=== PATIENT | male | born 1980 | race Caucasian/White ===

== ENCOUNTER 2017-10-19 13:22 | Emergency (ER) | payer SELFPAY ==
[~2017-10-19] VITALS: Ht 175.3 cm; Wt 120.5 kg
[2017-10-19] MEDS ORDERED: LISI-660 PO (13:36)
[2017-10-19] MEDS ORDERED: AMLO2.5T PO (13:36)
[2017-10-19] MEDS ORDERED: ESCI10TA PO (13:36)
[2017-10-19] MEDS ORDERED: QUET25TA PO (13:36)
[2017-10-19] MEDS ORDERED: LORazepam 1 MG TABLET PO ONE (14:45)
[2017-10-19 14:56] VITALS: BP 150/84
[2017-10-20] MEDS ORDERED: GABA-529 PO (09:35)
[2017-10-20] MEDS ORDERED: TRAZ-147 PO (09:35)
[2017-10-20] MEDS ORDERED: RISP1 PO (13:01)
== END 2017-10-19 14:57 | disposition home or self-care (01) ==
LOC: EMS 13:25
DX: Z76.0 Encounter for issue of repeat prescription (principal); F41.9 Anxiety disorder, unspecified; I10 Essential (primary) hypertension; F32.9 Major depressive disorder, single episode, unspecified; F17.210 Nicotine dependence, cigarettes, uncomplicated
CPT/HCPCS: 99283

== ENCOUNTER 2017-10-20 09:27 | Inpatient (IN) | payer SELFPAY ==
[~2017-10-20] VITALS: Ht 175.3 cm; Wt 112.5 kg
[~2017-10-20 09:27] MED LIST: AMLO2.5T PO; ESCI10TA PO; LISI-660 PO; QUET25TA PO
[2017-10-20] MEDS ORDERED: GABA-529 PO (09:35)
[2017-10-20] MEDS ORDERED: TRAZ-147 PO (09:35)
[2017-10-20 09:47] LABS: BASOPHILS % (AUTO) 0.7 % (0.0-2.0); EOSINOPHILS % (AUTO) 0.7 % (1.0-6.0); HEMATOCRIT 42.6 % (41-53); HEMOGLOBIN 14.5 g/dL (13.5-17.5); LYMPHOCYTES # (AUTO) 1.6 K/uL (1.0-4.8); LYMPHOCYTES % (AUTO) 13.5 % (22.0-44.0); MEAN CORPUSCULAR HEMOGLOBIN 28.7 pg (26.0-34.0); MEAN CORPUSCULAR HGB CONC 34.1 G/dL (31.0-37.0); MEAN CORPUSCULAR VOLUME 84 fL (80-100); MONOCYTES # (AUTO) 0.3 K/uL (0.1-1.0); MONOCYTES % (AUTO) 2.6 % (2.0-9.0); NEUTROPHILS # (AUTO) 9.9 K/uL (1.8-7.7); NEUTROPHILS % (AUTO) 82.5 % (40.0-70.0); PLATELET COUNT (AUTO) 353 K/uL (150-450); RED BLOOD CELL COUNT(AUTO) 5.07 MIL/uL (4.50-5.90)
[2017-10-20 09:56] LABS: ANION GAP 12 mmol/L (8-16); CALCIUM, TOTAL 9.2 mg/dL (8.8-10.5); CARBON DIOXIDE 24 mmol/L (22-29); CHLORIDE 104 mmol/L (98-107); GLOMERULAR FILTR. RATE CALC > 60 mL/min (>60); GLUCOSE,RANDOM 154 mg/dL (70-110); POTASSIUM 4.1 mmol/L (3.5-5.1); SODIUM SERUM 140 mmol/L (136-145); UREA NITROGEN, BLOOD 11 mg/dL (7-18)
[2017-10-20 10:01] LABS: ALANINE AMINOTRANSFERASE 36 U/L (12-78); ALBUMIN 3.9 g/dL (3.4-5.0); ALKALINE PHOSPHATASE 83 U/L (46-116); AMPHET/METH SCREEN,URINE NEGATIVE (NEGATIVE); ASPARTATE AMINOTRANSFERASE 16 U/L (15-37); BARBITURATE SCREEN, URINE NEGATIVE (NEGATIVE); BENZODIAZEPINES SCREEN,URINE NEGATIVE (NEGATIVE); BILIRUBIN,TOTAL 0.2 mg/dL (0.1-1.0); CANNABINOID SCREEN,URINE NEGATIVE (NEGATIVE); COCAINE SCREEN,URINE NEGATIVE (NEGATIVE); METHADONE SCREEN, URINE NEGATIVE (NEGATIVE); OPIATE SCREEN,URINE NEGATIVE (NEGATIVE); PHENCYCLIDINE SCREEN,URINE NEGATIVE (NEGATIVE); TOTAL PROTEIN, SERUM 7.2 g/dL (6.4-8.2)
[2017-10-20] MEDS ORDERED: LORazepam 2 MG TABLET PO ONE (10:30)
[2017-10-20] MEDS ORDERED: HALOPERIDOL 5 MG TABLET PO PRN ×2 (11:00→12:00)
[2017-10-20] MEDS ORDERED: LORazepam 2 MG TABLET PO PRN (11:00)
[2017-10-20] MEDS ORDERED: ZOLPIDEM TARTRATE 10 MG TABLET PO PRN ×2 (11:00→12:00)
[2017-10-20] MEDS ORDERED: AmLODIPine BESYLATE 5 MG TABLET PO ONE (11:15)
[2017-10-20] MEDS ORDERED: RISP1 PO (13:01)
[2017-10-20 13:15] VITALS: BP 120/81
[2017-10-20] MEDS: GABAPENTIN 100 MG CAPSULE PO SCH ×2 (13:18→16:41)
[2017-10-20] MEDS: LORazepam 2 MG TABLET PO PRN (13:45)
[2017-10-20] MEDS ORDERED: GABAPENTIN 100 MG CAPSULE PO SCH (16:00)
[2017-10-20 16:07] VITALS: BP 120/66
[2017-10-20] MEDS: LISINOPRIL 5 MG TABLET PO SCH (16:41)
[2017-10-20] MEDS: TraZODone HCL 100 MG TABLET PO SCH (20:18)
[2017-10-20] MEDS ORDERED: TraZODone HCL 100 MG TABLET PO SCH (21:00)
[2017-10-21 04:55] VITALS: BP 142/92
[2017-10-21] MEDS: LORazepam 2 MG TABLET PO PRN ×3 (04:55→14:13)
[2017-10-21 08:26] VITALS: BP 122/88
[2017-10-21] MEDS ORDERED: ESCITALOPRAM OXALATE 10 MG TABLET PO SCH (09:00)
[2017-10-21] MEDS: GABAPENTIN 100 MG CAPSULE PO SCH ×3 (09:28→16:16)
[2017-10-21] MEDS: LISINOPRIL 5 MG TABLET PO SCH ×2 (09:28→16:16)
[2017-10-21] MEDS: AmLODIPine BESYLATE 2.5 MG TABLET PO SCH (09:28)
[2017-10-21] MEDS: ESCITALOPRAM OXALATE 10 MG TABLET PO SCH (09:29)
[2017-10-21 16:00] VITALS: BP 125/83
[2017-10-21] MEDS: TraZODone HCL 100 MG TABLET PO SCH (20:04)
[2017-10-22] MEDS: LORazepam 2 MG TABLET PO PRN ×3 (05:00→16:37)
[2017-10-22 06:33] VITALS: BP 138/86
[2017-10-22] MEDS: ESCITALOPRAM OXALATE 10 MG TABLET PO SCH (08:18)
[2017-10-22] MEDS: LISINOPRIL 5 MG TABLET PO SCH ×2 (08:19→16:13)
[2017-10-22] MEDS: GABAPENTIN 100 MG CAPSULE PO SCH ×3 (08:19→16:13)
[2017-10-22] MEDS: AmLODIPine BESYLATE 2.5 MG TABLET PO SCH (08:19)
[2017-10-22 08:23] LABS: BASOPHILS % (AUTO) 0.7 % (0.0-2.0); EOSINOPHILS % (AUTO) 2.5 % (1.0-6.0); HEMATOCRIT 41.9 % (41-53); HEMOGLOBIN 14.1 g/dL (13.5-17.5); LYMPHOCYTES # (AUTO) 2.1 K/uL (1.0-4.8); LYMPHOCYTES % (AUTO) 24.1 % (22.0-44.0); MEAN CORPUSCULAR HEMOGLOBIN 28.4 pg (26.0-34.0); MEAN CORPUSCULAR HGB CONC 33.6 G/dL (31.0-37.0); MEAN CORPUSCULAR VOLUME 85 fL (80-100); MONOCYTES # (AUTO) 0.3 K/uL (0.1-1.0); MONOCYTES % (AUTO) 3.3 % (2.0-9.0); NEUTROPHILS % (AUTO) 69.4 % (40.0-70.0); PLATELET COUNT (AUTO) 309 K/uL (150-450); RED BLOOD CELL COUNT(AUTO) 4.96 MIL/uL (4.50-5.90); RED CELL DISTRIBUTION WIDTH 13.1 % (11.5-14.5)
[2017-10-22 10:00] VITALS: BP 136/86
[2017-10-22 16:11] VITALS: BP 121/98
[2017-10-22] MEDS: TraZODone HCL 100 MG TABLET PO SCH (20:12)
[2017-10-23 04:00] VITALS: BP 140/82
[2017-10-23] MEDS: LORazepam 2 MG TABLET PO PRN ×3 (04:27→15:48)
[2017-10-23 08:24] VITALS: BP 121/73
[2017-10-23] MEDS: GABAPENTIN 100 MG CAPSULE PO SCH ×3 (08:32→16:03)
[2017-10-23] MEDS: LISINOPRIL 5 MG TABLET PO SCH ×2 (08:32→16:03)
[2017-10-23] MEDS: ESCITALOPRAM OXALATE 10 MG TABLET PO SCH (08:32)
[2017-10-23] MEDS: AmLODIPine BESYLATE 2.5 MG TABLET PO SCH (08:32)
[2017-10-23] MEDS ORDERED: GABA-529 PO (14:30)
[2017-10-23] MEDS ORDERED: AMLO2.5T PO (14:30)
[2017-10-23] MEDS ORDERED: LISI-660 PO (14:30)
[2017-10-23] MEDS ORDERED: ESCI10TA PO (14:30)
[2017-10-23 16:26] VITALS: BP 120/79
[2017-10-23] MEDS: TraZODone HCL 100 MG TABLET PO SCH (20:27)
[2017-10-24 03:36] VITALS: BP 138/86
[2017-10-24] MEDS: LORazepam 2 MG TABLET PO PRN ×3 (03:37→16:04)
[2017-10-24] MEDS: ESCITALOPRAM OXALATE 10 MG TABLET PO SCH (08:04)
[2017-10-24] MEDS: AmLODIPine BESYLATE 2.5 MG TABLET PO SCH (08:04)
[2017-10-24] MEDS: GABAPENTIN 100 MG CAPSULE PO SCH ×3 (08:04→16:04)
[2017-10-24] MEDS: LISINOPRIL 5 MG TABLET PO SCH ×2 (08:05→16:04)
[2017-10-24 08:17] VITALS: BP 152/68
[2017-10-24 09:00] VITALS: BP 138/79
[2017-10-24 16:09] VITALS: BP 158/99
[2017-10-24 18:08] VITALS: BP 141/89
[2017-10-24] MEDS: TraZODone HCL 100 MG TABLET PO SCH (20:17)
[2017-10-25 00:55] VITALS: BP 119/87
[2017-10-25] MEDS: LORazepam 2 MG TABLET PO PRN ×3 (05:41→16:52)
[2017-10-25] MEDS: ESCITALOPRAM OXALATE 10 MG TABLET PO SCH (08:03)
[2017-10-25] MEDS: AmLODIPine BESYLATE 2.5 MG TABLET PO SCH (08:03)
[2017-10-25] MEDS: LISINOPRIL 5 MG TABLET PO SCH ×2 (08:04→16:54)
[2017-10-25] MEDS: GABAPENTIN 100 MG CAPSULE PO SCH ×3 (08:04→16:52)
[2017-10-25 10:12] VITALS: BP 139/90
[2017-10-25 16:06] VITALS: BP 120/78
[2017-10-25] MEDS: TraZODone HCL 100 MG TABLET PO SCH (20:13)
[2017-10-26] MEDS: LORazepam 2 MG TABLET PO PRN ×3 (04:43→16:05)
[2017-10-26 06:26] VITALS: BP 134/82
[2017-10-26 08:10] VITALS: BP 170/101
[2017-10-26] MEDS: GABAPENTIN 100 MG CAPSULE PO SCH ×3 (08:32→16:05)
[2017-10-26] MEDS: AmLODIPine BESYLATE 2.5 MG TABLET PO SCH (08:32)
[2017-10-26] MEDS: LISINOPRIL 5 MG TABLET PO SCH (08:32)
[2017-10-26] MEDS: ESCITALOPRAM OXALATE 10 MG TABLET PO SCH (08:32)
[2017-10-26 09:00] VITALS: BP 145/111
[2017-10-26 10:15] VITALS: BP 121/76
[2017-10-26] MEDS: AmLODIPine BESYLATE 10 MG TABLET PO SCH (10:16)
[2017-10-26] MEDS: LISINOPRIL 10 MG TABLET PO SCH (10:16)
[2017-10-26 16:07] VITALS: BP 120/85
[2017-10-26] MEDS: TraZODone HCL 100 MG TABLET PO SCH (20:03)
[2017-10-27 04:30] VITALS: BP 122/85
[2017-10-27] MEDS: LORazepam 2 MG TABLET PO PRN ×3 (04:41→16:13)
[2017-10-27 08:19] VITALS: BP 118/58
[2017-10-27] MEDS: ESCITALOPRAM OXALATE 10 MG TABLET PO SCH (08:36)
[2017-10-27] MEDS: GABAPENTIN 100 MG CAPSULE PO SCH ×3 (08:36→16:04)
[2017-10-27] MEDS: LISINOPRIL 10 MG TABLET PO SCH (09:00)
[2017-10-27] MEDS: AmLODIPine BESYLATE 10 MG TABLET PO SCH (09:00)
[2017-10-27 16:01] VITALS: BP 121/86
[2017-10-27] MEDS: TraZODone HCL 100 MG TABLET PO SCH (20:03)
[2017-10-28 02:20] VITALS: BP 125/86
[2017-10-28 04:37] VITALS: BP 141/82
[2017-10-28] MEDS: LORazepam 2 MG TABLET PO PRN ×2 (04:49→11:44)
[2017-10-28 08:20] VITALS: BP 120/82
[2017-10-28] MEDS: GABAPENTIN 100 MG CAPSULE PO SCH ×3 (08:49→16:36)
[2017-10-28] MEDS: AmLODIPine BESYLATE 10 MG TABLET PO SCH (08:49)
[2017-10-28] MEDS: LISINOPRIL 10 MG TABLET PO SCH (08:49)
[2017-10-28] MEDS: ESCITALOPRAM OXALATE 10 MG TABLET PO SCH (08:49)
[2017-10-28] MEDS ORDERED: AMLO-512 PO (16:03)
[2017-10-28] MEDS ORDERED: LISI-661 PO (16:03)
[2017-10-28 16:46] VITALS: BP 122/92
== END 2017-10-28 17:00 | disposition home or self-care (01) | DRG 885 ==
LOC: EMS 09:29 → B2S 11:42
DX: F31.4 Bipolar disorder, current episode depressed, severe, without psychotic features (principal); R45.851 Suicidal ideations; F15.10 Other stimulant abuse, uncomplicated; F17.210 Nicotine dependence, cigarettes, uncomplicated; F41.9 Anxiety disorder, unspecified; I10 Essential (primary) hypertension; Z79.899 Other long term (current) drug therapy; Z91.5 Personal history of self-harm
CPT/HCPCS: 83036; 99285; G0480

== ENCOUNTER 2018-09-12 06:54 | Inpatient (IN) | payer MEDICAID ==
[~2018-09-12] VITALS: Ht 175.3 cm; Wt 94.5 kg
[~2018-09-12 06:54] MED LIST changes: +AMLO-512 PO; -AMLO2.5T PO; +GABA-529 PO; -LISI-660 PO; +LISI-661 PO; -QUET25TA PO; +TRAZ-220 PO
[2018-09-12 08:56] VITALS: BP 130/82
[2018-09-12] MEDS ORDERED: ZOLPIDEM TARTRATE 10 MG TABLET PO PRN (09:00)
[2018-09-12] MEDS ORDERED: ADDE10 PO (09:29)
[2018-09-12 10:00] VITALS: BP 129/89
[2018-09-12] MEDS ORDERED: LOPERAMIDE HCL 2 MG CAPSULE PO PRN (10:45)
[2018-09-12] MEDS ORDERED: PNEUMOCOCCAL VACCINE POLYVALENT 0.5 ML VIAL [PPSV23] IM ONE (10:45)
[2018-09-12] MEDS ORDERED: MAG HYDROX/AL HYDROX/SIMETH ES 30 ML SUSPENSION UDCUP PO PRN (10:45)
[2018-09-12] MEDS ORDERED: ONDANSETRON HCL 4 MG TABLET PO PRN (10:45)
[2018-09-12] MEDS ORDERED: MAGNESIUM HYDROXIDE SUSPENSION 30 ML UDCUP PO PRN (10:45)
[2018-09-12] MEDS ORDERED: CloNIDine HCL 0.1 MG TABLET PO PRN (10:45)
[2018-09-12] MEDS ORDERED: GuaiFENesin/D-METHORPHAN [SUGAR-FREE] 200-20MG/10 ML SYRUP UDCUP PO PRN (10:45)
[2018-09-12] MEDS ORDERED: PETROLATUM,WHITE 71 GM JELLY TP PRN (10:45)
[2018-09-12] MEDS ORDERED: DOCUSATE SODIUM 100 MG CAPSULE PO PRN (10:45)
[2018-09-12] MEDS ORDERED: ALBUTEROL SULFATE HFA 90 MCG/PUFF 8 GM INHALER IH PRN (10:45)
[2018-09-12] MEDS ORDERED: ACETAMINOPHEN 325 MG TABLET PO PRN (10:45)
[2018-09-12] MEDS ORDERED: IBUPROFEN 400 MG TABLET PO PRN (10:45)
[2018-09-12] MEDS: NICOTINE 14 MG/24 HOUR PATCH TD SCH (11:56)
[2018-09-12] MEDS ORDERED: LISINOPRIL 20 MG TABLET PO ONE (12:30)
[2018-09-12 16:31] VITALS: BP 136/96
[2018-09-12] MEDS: GABAPENTIN 100 MG CAPSULE PO SCH (16:32)
[2018-09-12] MEDS: LORazepam 2 MG TABLET PO PRN (16:33)
[2018-09-13 06:07] VITALS: BP 132/87
[2018-09-13 08:21] LABS: BASOPHILS % (AUTO) 0.6 % (0.0-2.0); EOSINOPHILS % (AUTO) 3.9 % (1.0-6.0); HEMATOCRIT 41.6 % (41-53); HEMOGLOBIN 14.2 g/dL (13.5-17.5); LYMPHOCYTES # (AUTO) 2.6 K/uL (1.0-4.8); LYMPHOCYTES % (AUTO) 28.1 % (22.0-44.0); MEAN CORPUSCULAR HEMOGLOBIN 30.3 pg (26.0-34.0); MEAN CORPUSCULAR HGB CONC 34.2 G/dL (31.0-37.0); MEAN CORPUSCULAR VOLUME 89 fL (80-100); MONOCYTES # (AUTO) 0.5 K/uL (0.1-1.0); NEUTROPHILS # (AUTO) 5.8 K/uL (1.8-7.7); NEUTROPHILS % (AUTO) 62.4 % (40.0-70.0); PLATELET COUNT (AUTO) 315 K/uL (150-450); RED CELL DISTRIBUTION WIDTH 13.2 % (11.5-14.5)
[2018-09-13 08:33] LABS: HEMOGLOBIN A1C 5.5 % (4.5-6.2)
[2018-09-13 08:36] VITALS: BP 136/70
[2018-09-13] MEDS: GABAPENTIN 100 MG CAPSULE PO SCH ×3 (08:36→16:34)
[2018-09-13] MEDS: ESCITALOPRAM OXALATE 10 MG TABLET PO SCH (08:36)
[2018-09-13] MEDS: LISINOPRIL 20 MG TABLET PO SCH (08:37)
[2018-09-13] MEDS: NICOTINE 14 MG/24 HOUR PATCH TD SCH (08:37)
[2018-09-13 08:57] LABS: ALANINE AMINOTRANSFERASE 27 U/L (12-78); ALBUMIN 3.4 g/dL (3.4-5.0); ALKALINE PHOSPHATASE 73 U/L (46-116); ANION GAP 5 mmol/L (8-16); ASPARTATE AMINOTRANSFERASE 14 U/L (15-37); BILIRUBIN,TOTAL 0.3 mg/dL (0.1-1.0); CALCIUM, TOTAL 8.7 mg/dL (8.8-10.5); CARBON DIOXIDE 32 mmol/L (22-29); CHLORIDE 103 mmol/L (98-107); CHOLESTEROL 137 mg/dL (131-200); CREATININE 0.68 mg/dL (0.60-1.30); GLOMERULAR FILTR. RATE CALC > 60 mL/min (>60); GLUCOSE,RANDOM 83 mg/dL (70-110); HDL CHOLESTEROL 45 mg/dL (40-60); LDL CHOL (CALC.) 69 mg/dL (0-130); SODIUM SERUM 140 mmol/L (136-145); THYROID STIMULATING HORMONE 0.54 uIU/mL (0.36-3.74); TOTAL PROTEIN, SERUM 6.8 g/dL (6.4-8.2); TRIGLYCERIDES 115 mg/dL (15-150); UREA NITROGEN, BLOOD 16 mg/dL (7-18)
[2018-09-13] MEDS: LORazepam 2 MG TABLET PO PRN ×3 (10:22→22:16)
[2018-09-13 16:51] VITALS: BP 138/85
[2018-09-14 07:37] VITALS: BP 127/84
[2018-09-14 08:59] VITALS: BP 140/89
[2018-09-14] MEDS: NICOTINE 14 MG/24 HOUR PATCH TD SCH (09:00)
[2018-09-14] MEDS: LISINOPRIL 20 MG TABLET PO SCH (09:21)
[2018-09-14] MEDS: ESCITALOPRAM OXALATE 10 MG TABLET PO SCH (09:21)
[2018-09-14] MEDS: GABAPENTIN 100 MG CAPSULE PO SCH ×3 (09:21→17:09)
[2018-09-14] MEDS: LORazepam 2 MG TABLET PO PRN ×2 (09:58→17:10)
[2018-09-14] MEDS: HALOPERIDOL 5 MG TABLET PO PRN (09:58)
[2018-09-14 16:11] VITALS: BP 133/79
[2018-09-14] MEDS: MUPIROCIN CALCIUM 2% 22 GM OINTMENT TP SCH (17:09)
[2018-09-15 06:52] VITALS: BP 126/71
[2018-09-15] MEDS: LORazepam 2 MG TABLET PO PRN (07:22)
[2018-09-15 08:47] VITALS: BP 135/89
[2018-09-15] MEDS: NICOTINE 14 MG/24 HOUR PATCH TD SCH (09:00)
[2018-09-15] MEDS: ESCITALOPRAM OXALATE 10 MG TABLET PO SCH (09:14)
[2018-09-15] MEDS: GABAPENTIN 100 MG CAPSULE PO SCH ×3 (09:14→16:30)
[2018-09-15] MEDS: MUPIROCIN CALCIUM 2% 22 GM OINTMENT TP SCH ×2 (09:14→16:42)
[2018-09-15] MEDS: LISINOPRIL 20 MG TABLET PO SCH (09:14)
[2018-09-15] MEDS: HALOPERIDOL 5 MG TABLET PO PRN (09:53)
[2018-09-15] MEDS ORDERED: LISI-662 PO (13:30)
[2018-09-15] MEDS ORDERED: MUPI15CR TP (13:33)
== END 2018-09-15 16:40 | disposition home or self-care (01) | DRG 753 ==
LOC: B2S 09:04 → EDSTATUS 09:34
DX: F31.4 Bipolar disorder, current episode depressed, severe, without psychotic features (principal); E83.51 Hypocalcemia; F41.9 Anxiety disorder, unspecified; I10 Essential (primary) hypertension; F15.90 Other stimulant use, unspecified, uncomplicated; F12.90 Cannabis use, unspecified, uncomplicated; F19.10 Other psychoactive substance abuse, uncomplicated; Z71.51 Drug abuse counseling and surveillance of drug abuser; Z59.0 Homelessness; F29 Unspecified psychosis not due to a substance or known physiological condition; Z28.21 Immunization not carried out because of patient refusal
CPT/HCPCS: 83036; 84443; 87081

== ENCOUNTER 2018-10-21 19:53 | Inpatient (IN) | payer MEDICAID ==
[~2018-10-21] VITALS: Ht 175.3 cm; Wt 91.6 kg
[~2018-10-21 19:53] MED LIST changes: -AMLO-512 PO; -LISI-661 PO; +LISI-662 PO; +MUPI15CR TP; -TRAZ-220 PO
[2018-10-22] MEDS ORDERED: ZOLPIDEM TARTRATE 10 MG TABLET PO PRN (00:30)
[2018-10-22] MEDS ORDERED: HALOPERIDOL 5 MG TABLET PO PRN (00:30)
[2018-10-22 01:14] VITALS: BP 140/78
[2018-10-22 10:10] VITALS: BP 140/74
[2018-10-22] MEDS: ESCITALOPRAM OXALATE 10 MG TABLET PO SCH (11:06)
[2018-10-22] MEDS: GABAPENTIN 100 MG CAPSULE PO SCH ×2 (13:21→16:59)
[2018-10-22 16:45] VITALS: BP 142/86
[2018-10-23 07:17] VITALS: BP 143/87
[2018-10-23] MEDS: GABAPENTIN 100 MG CAPSULE PO SCH ×3 (08:36→17:29)
[2018-10-23] MEDS: ESCITALOPRAM OXALATE 10 MG TABLET PO SCH (08:36)
[2018-10-23 08:49] VITALS: BP 142/85
[2018-10-23 08:54] LABS: BASOPHILS % (AUTO) 0.3 % (0.0-2.0); EOSINOPHILS % (AUTO) 3.7 % (1.0-6.0); HEMATOCRIT 42.3 % (41-53); HEMOGLOBIN 13.8 g/dL (13.5-17.5); LYMPHOCYTES # (AUTO) 1.9 K/uL (1.0-4.8); LYMPHOCYTES % (AUTO) 20.3 % (22.0-44.0); MEAN CORPUSCULAR HEMOGLOBIN 28.5 pg (26.0-34.0); MEAN CORPUSCULAR HGB CONC 32.7 G/dL (31.0-37.0); MEAN CORPUSCULAR VOLUME 87 fL (80-100); MONOCYTES # (AUTO) 0.4 K/uL (0.1-1.0); MONOCYTES % (AUTO) 4.4 % (2.0-9.0); NEUTROPHILS # (AUTO) 6.6 K/uL (1.8-7.7); NEUTROPHILS % (AUTO) 71.3 % (40.0-70.0); PLATELET COUNT (AUTO) 337 K/uL (150-450); RED BLOOD CELL COUNT(AUTO) 4.85 MIL/uL (4.50-5.90); RED CELL DISTRIBUTION WIDTH 13.3 % (11.5-14.5)
[2018-10-23 09:09] LABS: HEMOGLOBIN A1C 5.3 % (4.5-6.2)
[2018-10-23 09:48] LABS: ALANINE AMINOTRANSFERASE 28 U/L (12-78); ALBUMIN 3.3 g/dL (3.4-5.0); ALKALINE PHOSPHATASE 66 U/L (46-116); ANION GAP 6 mmol/L (8-16); ASPARTATE AMINOTRANSFERASE 15 U/L (15-37); BILIRUBIN,TOTAL 0.5 mg/dL (0.1-1.0); CALCIUM, TOTAL 8.9 mg/dL (8.8-10.5); CARBON DIOXIDE 29 mmol/L (22-29); CHLORIDE 101 mmol/L (98-107); CHOL/HDL RATIO 3.1 (4.2-7.3); CHOLESTEROL 131 mg/dL (131-200); CREATININE 0.71 mg/dL (0.60-1.30); FREE T4 (FREE THYROXINE) 0.99 ng/dL (0.76-1.46); GLOMERULAR FILTR. RATE CALC > 60 mL/min (>60); GLUCOSE,RANDOM 90 mg/dL (70-110); HDL CHOLESTEROL 42 mg/dL (40-60); LDL CHOL (CALC.) 65 mg/dL (0-130); POTASSIUM 4.3 mmol/L (3.5-5.1); SODIUM SERUM 136 mmol/L (136-145); THYROID STIMULATING HORMONE 0.12 uIU/mL (0.36-3.74); TOTAL PROTEIN, SERUM 6.5 g/dL (6.4-8.2); TRIGLYCERIDES 122 mg/dL (15-150); UREA NITROGEN, BLOOD 14 mg/dL (7-18)
[2018-10-23 16:12] VITALS: BP 144/89
[2018-10-24 01:53] VITALS: BP 140/85
[2018-10-24] MEDS: ESCITALOPRAM OXALATE 10 MG TABLET PO SCH (09:00)
[2018-10-24] MEDS: GABAPENTIN 100 MG CAPSULE PO SCH ×3 (09:00→17:03)
[2018-10-24 09:21] VITALS: BP 143/80
[2018-10-24] MEDS: LORazepam 2 MG TABLET PO PRN ×2 (12:22→19:03)
[2018-10-24] MEDS: LISINOPRIL 20 MG TABLET PO SCH (17:03)
[2018-10-25 00:20] VITALS: BP 131/80
[2018-10-25] MEDS: ESCITALOPRAM OXALATE 10 MG TABLET PO SCH (08:44)
[2018-10-25] MEDS: LORazepam 2 MG TABLET PO PRN ×2 (08:44→13:54)
[2018-10-25] MEDS: GABAPENTIN 100 MG CAPSULE PO SCH ×3 (08:44→16:58)
[2018-10-25] MEDS: LISINOPRIL 20 MG TABLET PO SCH (08:44)
[2018-10-25 10:10] VITALS: BP 135/95
[2018-10-25 16:16] VITALS: BP 138/76
[2018-10-26 00:02] VITALS: BP 126/79
[2018-10-26] MEDS: LORazepam 2 MG TABLET PO PRN ×3 (00:10→14:26)
[2018-10-26] MEDS: ESCITALOPRAM OXALATE 10 MG TABLET PO SCH (09:07)
[2018-10-26] MEDS: GABAPENTIN 100 MG CAPSULE PO SCH ×3 (09:07→17:12)
[2018-10-26] MEDS: LISINOPRIL 20 MG TABLET PO SCH (09:07)
[2018-10-26 09:52] VITALS: BP 122/69
[2018-10-26 17:35] VITALS: BP 145/92
[2018-10-27] MEDS: LORazepam 2 MG TABLET PO PRN ×3 (00:12→15:03)
[2018-10-27 01:42] VITALS: BP 136/100
[2018-10-27 08:05] VITALS: BP 125/96
[2018-10-27] MEDS: ESCITALOPRAM OXALATE 10 MG TABLET PO SCH (08:36)
[2018-10-27] MEDS: LISINOPRIL 20 MG TABLET PO SCH (08:36)
[2018-10-27] MEDS: GABAPENTIN 100 MG CAPSULE PO SCH ×3 (08:36→16:25)
[2018-10-27 16:22] VITALS: BP 145/83
[2018-10-28] MEDS: LORazepam 2 MG TABLET PO PRN ×3 (00:02→12:24)
[2018-10-28 00:53] VITALS: BP 110/85
[2018-10-28] MEDS: ESCITALOPRAM OXALATE 10 MG TABLET PO SCH (08:12)
[2018-10-28] MEDS: GABAPENTIN 100 MG CAPSULE PO SCH ×2 (08:12→13:18)
[2018-10-28] MEDS: LISINOPRIL 20 MG TABLET PO SCH (08:13)
[2018-10-28] MEDS ORDERED: MULTIVITAMINS WITH MINERALS, THERAPEUTIC TABLET PO SCH (12:45)
[2018-10-28] MEDS ORDERED: LOPERAMIDE HCL 2 MG CAPSULE PO PRN (12:45)
[2018-10-28] MEDS ORDERED: LORazepam 2 MG TABLET PO PRN (12:45)
[2018-10-28] MEDS ORDERED: GuaiFENesin/D-METHORPHAN [SUGAR-FREE] 200-20MG/10 ML SYRUP UDCUP PO PRN (12:45)
[2018-10-28] MEDS ORDERED: CYANOCOBALAMIN 1,000 MCG/ML VIAL IM ONE (12:45)
[2018-10-28] MEDS ORDERED: HydrOXYzine PAMOATE 50 MG CAPSULE PO PRN (12:45)
[2018-10-28] MEDS ORDERED: FOLIC ACID 1 MG TABLET PO SCH (12:45)
[2018-10-28 14:57] VITALS: BP 120/80
[2018-10-28] MEDS ORDERED: THIAMINE HCL 100 MG TABLET PO SCH (17:00)
[2018-10-29] MEDS ORDERED: LORazepam 2 MG TABLET PO PRN (07:00)
[2018-10-29] MEDS ORDERED: LORazepam 2 MG TABLET PO SCH (09:00)
[2018-10-31] MEDS ORDERED: LORazepam 1 MG TABLET PO PRN (07:00)
[2018-10-31] MEDS ORDERED: LORazepam 1 MG TABLET PO SCH (09:00)
[2018-11-01] MEDS ORDERED: LORazepam 1 MG TABLET PO PRN (07:00)
== END 2018-10-28 15:30 | disposition home or self-care (01) | DRG 751 ==
LOC: B3A 10-22 00:30 → B2S 10-22 06:12
PROVIDERS: ADMIT Psychiatry & Neurology Child & Adolescent Psychiatry; ATTEND Psychiatry & Neurology Child & Adolescent Psychiatry
DX: F29 Unspecified psychosis not due to a substance or known physiological condition (principal); F17.200 Nicotine dependence, unspecified, uncomplicated; F41.9 Anxiety disorder, unspecified; R45.87 Impulsiveness
CPT/HCPCS: 83036; 84439; 84443

== ENCOUNTER 2018-11-12 20:22 | Inpatient (IN) | payer MEDICAID ==
[~2018-11-12] VITALS: Ht 170.2 cm; Wt 95.0 kg
[~2018-11-12 20:22] MED LIST changes: -MUPI15CR TP
[2018-11-12] MEDS ORDERED: HALOPERIDOL 5 MG TABLET PO PRN (21:00)
[2018-11-12] MEDS ORDERED: ZOLPIDEM TARTRATE 10 MG TABLET PO PRN (21:00)
[2018-11-12 21:42] VITALS: BP 145/89
[2018-11-12] MEDS ORDERED: MAGNESIUM HYDROXIDE SUSPENSION 30 ML UDCUP PO PRN (22:00)
[2018-11-12] MEDS ORDERED: LOPERAMIDE HCL 2 MG CAPSULE PO PRN (22:00)
[2018-11-12] MEDS ORDERED: PETROLATUM,WHITE 28 GM JELLY TP PRN (22:00)
[2018-11-12] MEDS ORDERED: ACETAMINOPHEN 325 MG TABLET PO PRN (22:00)
[2018-11-12] MEDS ORDERED: ONDANSETRON HCL 4 MG TABLET PO PRN (22:00)
[2018-11-12] MEDS ORDERED: NICOTINE 14 MG/24 HOUR PATCH TD PRN (22:00)
[2018-11-12] MEDS ORDERED: GuaiFENesin/D-METHORPHAN [SUGAR-FREE] 200-20MG/10 ML SYRUP UDCUP PO PRN (22:00)
[2018-11-12] MEDS ORDERED: IBUPROFEN 400 MG TABLET PO PRN (22:00)
[2018-11-12] MEDS ORDERED: ALBUTEROL SULFATE HFA 90 MCG/PUFF 8 GM INHALER IH PRN (22:00)
[2018-11-12] MEDS ORDERED: DOCUSATE SODIUM 100 MG CAPSULE PO PRN (22:00)
[2018-11-12] MEDS ORDERED: CloNIDine HCL 0.1 MG TABLET PO PRN (22:00)
[2018-11-12] MEDS ORDERED: MAG HYDROX/AL HYDROX/SIMETH ES 30 ML SUSPENSION UDCUP PO PRN (22:00)
[2018-11-13 04:38] VITALS: BP 111/71
[2018-11-13] MEDS: LORazepam 2 MG TABLET PO PRN ×2 (07:01→14:21)
[2018-11-13 08:14] LABS: BASOPHILS % (AUTO) 0.5 % (0.0-2.0); EOSINOPHILS % (AUTO) 4.2 % (1.0-6.0); HEMATOCRIT 40.7 % (41-53); HEMOGLOBIN 13.5 g/dL (13.5-17.5); LYMPHOCYTES # (AUTO) 1.9 K/uL (1.0-4.8); LYMPHOCYTES % (AUTO) 22.6 % (22.0-44.0); MEAN CORPUSCULAR HEMOGLOBIN 28.7 pg (26.0-34.0); MEAN CORPUSCULAR HGB CONC 33.2 G/dL (31.0-37.0); MEAN CORPUSCULAR VOLUME 87 fL (80-100); MONOCYTES # (AUTO) 0.5 K/uL (0.1-1.0); MONOCYTES % (AUTO) 5.7 % (2.0-9.0); NEUTROPHILS # (AUTO) 5.7 K/uL (1.8-7.7); PLATELET COUNT (AUTO) 256 K/uL (150-450); RED CELL DISTRIBUTION WIDTH 13.1 % (11.5-14.5)
[2018-11-13 08:23] LABS: HEMOGLOBIN A1C 5.9 % (4.5-6.2)
[2018-11-13 08:37] LABS: ALANINE AMINOTRANSFERASE 25 U/L (12-78); ALBUMIN 3.5 g/dL (3.4-5.0); ALKALINE PHOSPHATASE 68 U/L (46-116); ANION GAP 7 mmol/L (8-16); ASPARTATE AMINOTRANSFERASE 17 U/L (15-37); BILIRUBIN,TOTAL 0.5 mg/dL (0.1-1.0); CALCIUM, TOTAL 8.9 mg/dL (8.8-10.5); CARBON DIOXIDE 27 mmol/L (22-29); CHLORIDE 104 mmol/L (98-107); CHOL/HDL RATIO 3.6 (4.2-7.3); CHOLESTEROL 126 mg/dL (131-200); CREATININE 0.64 mg/dL (0.60-1.30); FREE T4 (FREE THYROXINE) 1.07 ng/dL (0.76-1.46); GLOMERULAR FILTR. RATE CALC > 60 mL/min (>60); GLUCOSE,RANDOM 96 mg/dL (70-110); HDL CHOLESTEROL 35 mg/dL (40-60); LDL CHOL (CALC.) 65 mg/dL (0-130); POTASSIUM 4.4 mmol/L (3.5-5.1); SODIUM SERUM 138 mmol/L (136-145); THYROID STIMULATING HORMONE 0.19 uIU/mL (0.36-3.74); TOTAL PROTEIN, SERUM 6.4 g/dL (6.4-8.2); TRIGLYCERIDES 129 mg/dL (15-150); UREA NITROGEN, BLOOD 13 mg/dL (7-18)
[2018-11-13] MEDS ORDERED: LISINOPRIL 20 MG TABLET PO SCH (09:00)
[2018-11-13 09:01] VITALS: BP 145/90
[2018-11-13] MEDS: AmLODIPine BESYLATE 5 MG TABLET PO SCH (09:10)
[2018-11-13] MEDS: GABAPENTIN 300 MG CAPSULE PO SCH ×2 (12:49→16:14)
[2018-11-13] MEDS: ESCITALOPRAM OXALATE 10 MG TABLET PO SCH (12:49)
[2018-11-13] MEDS ORDERED: GABAPENTIN 300 MG CAPSULE PO SCH (13:00)
[2018-11-13 16:22] VITALS: BP 139/84
[2018-11-14 00:26] VITALS: BP 126/86
[2018-11-14] MEDS: LORazepam 2 MG TABLET PO PRN ×5 (00:29→21:29)
[2018-11-14 08:28] VITALS: BP 132/61
[2018-11-14] MEDS ORDERED: ESCITALOPRAM OXALATE 10 MG TABLET PO SCH (09:00)
[2018-11-14] MEDS: ESCITALOPRAM OXALATE 10 MG TABLET PO SCH (09:50)
[2018-11-14] MEDS: GABAPENTIN 300 MG CAPSULE PO SCH ×3 (09:50→16:22)
[2018-11-14] MEDS: AmLODIPine BESYLATE 5 MG TABLET PO SCH (09:50)
[2018-11-14] MEDS: LISINOPRIL 20 MG TABLET PO SCH (09:51)
[2018-11-14 16:46] VITALS: BP 119/81
[2018-11-15 00:14] VITALS: BP 122/82
[2018-11-15] MEDS: LORazepam 2 MG TABLET PO PRN ×4 (02:18→21:12)
[2018-11-15 08:50] VITALS: BP 127/84
[2018-11-15] MEDS: AmLODIPine BESYLATE 5 MG TABLET PO SCH (09:22)
[2018-11-15] MEDS: ESCITALOPRAM OXALATE 10 MG TABLET PO SCH (09:22)
[2018-11-15] MEDS: GABAPENTIN 300 MG CAPSULE PO SCH ×3 (09:22→16:24)
[2018-11-15] MEDS: LISINOPRIL 20 MG TABLET PO SCH (09:22)
[2018-11-15 16:48] VITALS: BP 140/95
[2018-11-16 00:24] VITALS: BP 112/72
[2018-11-16] MEDS: LORazepam 2 MG TABLET PO PRN ×3 (02:19→11:16)
[2018-11-16 08:27] VITALS: BP 109/76
[2018-11-16] MEDS: GABAPENTIN 300 MG CAPSULE PO SCH ×3 (08:32→16:01)
[2018-11-16] MEDS: AmLODIPine BESYLATE 5 MG TABLET PO SCH (08:32)
[2018-11-16] MEDS: LISINOPRIL 20 MG TABLET PO SCH (08:32)
[2018-11-16] MEDS: ESCITALOPRAM OXALATE 10 MG TABLET PO SCH (08:32)
[2018-11-16] MEDS ORDERED: AMLO-511 PO (16:29)
[2018-11-16] MEDS ORDERED: GABA-531 PO (16:29)
[2018-11-16 16:43] VITALS: BP 118/72
== END 2018-11-16 17:40 | disposition home or self-care (01) | DRG 753 ==
LOC: B2S 21:01
PROVIDERS: ADMIT Psychiatry & Neurology Child & Adolescent Psychiatry; ATTEND Psychiatry & Neurology Child & Adolescent Psychiatry
DX: F31.4 Bipolar disorder, current episode depressed, severe, without psychotic features (principal); R45.851 Suicidal ideations; D64.9 Anemia, unspecified; F19.20 Other psychoactive substance dependence, uncomplicated; F41.9 Anxiety disorder, unspecified; I10 Essential (primary) hypertension; F10.10 Alcohol abuse, uncomplicated; Y90.9 Presence of alcohol in blood, level not specified; Z71.51 Drug abuse counseling and surveillance of drug abuser; Z71.41 Alcohol abuse counseling and surveillance of alcoholic
CPT/HCPCS: 83036; 84439; 84443

== ENCOUNTER 2018-11-26 20:34 | Inpatient (IN) | payer MEDICAID ==
[~2018-11-26] VITALS: Ht 175.3 cm; Wt 91.4 kg
[~2018-11-26 20:34] MED LIST changes: +AMLO-511 PO; -GABA-529 PO; +GABA-531 PO
[2018-11-26] MEDS ORDERED: ZOLPIDEM TARTRATE 10 MG TABLET PO PRN (22:15)
[2018-11-27] VITALS (8 sets, daily range): BP systolic 107–148; BP diastolic 77–89
[2018-11-27] MEDS ORDERED: MAGNESIUM HYDROXIDE SUSPENSION 30 ML UDCUP PO PRN (05:30)
[2018-11-27] MEDS ORDERED: DOCUSATE SODIUM 100 MG CAPSULE PO PRN (05:30)
[2018-11-27] MEDS ORDERED: IBUPROFEN 400 MG TABLET PO PRN (05:30)
[2018-11-27] MEDS ORDERED: ONDANSETRON HCL 4 MG TABLET PO PRN (05:30)
[2018-11-27] MEDS ORDERED: CloNIDine HCL 0.1 MG TABLET PO PRN ×2 (05:30→09:45)
[2018-11-27] MEDS ORDERED: ALBUTEROL SULFATE HFA 90 MCG/PUFF 8 GM INHALER IH PRN (05:30)
[2018-11-27] MEDS ORDERED: MAG HYDROX/AL HYDROX/SIMETH ES 30 ML SUSPENSION UDCUP PO PRN ×2 (05:30→09:45)
[2018-11-27] MEDS ORDERED: ACETAMINOPHEN 325 MG TABLET PO PRN (05:30)
[2018-11-27] MEDS ORDERED: GuaiFENesin/D-METHORPHAN [SUGAR-FREE] 200-20MG/10 ML SYRUP UDCUP PO PRN (05:30)
[2018-11-27] MEDS ORDERED: LOPERAMIDE HCL 2 MG CAPSULE PO PRN (05:30)
[2018-11-27 08:48] LABS: BASOPHILS % (AUTO) 0.4 % (0.0-2.0); EOSINOPHILS % (AUTO) 2.6 % (1.0-6.0); HEMATOCRIT 38.6 % (41-53); HEMOGLOBIN 12.8 g/dL (13.5-17.5); LYMPHOCYTES # (AUTO) 1.4 K/uL (1.0-4.8); LYMPHOCYTES % (AUTO) 16.6 % (22.0-44.0); MEAN CORPUSCULAR HEMOGLOBIN 28.5 pg (26.0-34.0); MEAN CORPUSCULAR HGB CONC 33.1 G/dL (31.0-37.0); MEAN CORPUSCULAR VOLUME 86 fL (80-100); MONOCYTES # (AUTO) 0.4 K/uL (0.1-1.0); MONOCYTES % (AUTO) 4.9 % (2.0-9.0); NEUTROPHILS # (AUTO) 6.3 K/uL (1.8-7.7); NEUTROPHILS % (AUTO) 75.5 % (40.0-70.0); PLATELET COUNT (AUTO) 332 K/uL (150-450); RED BLOOD CELL COUNT(AUTO) 4.49 MIL/uL (4.50-5.90); RED CELL DISTRIBUTION WIDTH 12.8 % (11.5-14.5)
[2018-11-27] MEDS: LISINOPRIL 20 MG TABLET PO SCH (08:57)
[2018-11-27] MEDS: LORazepam 2 MG TABLET PO PRN (08:57)
[2018-11-27] MEDS: HALOPERIDOL 5 MG TABLET PO PRN (08:57)
[2018-11-27] MEDS: AmLODIPine BESYLATE 5 MG TABLET PO SCH (08:58)
[2018-11-27 09:12] LABS: HEMOGLOBIN A1C 5.8 % (4.5-6.2)
[2018-11-27 09:38] LABS: ALANINE AMINOTRANSFERASE 22 U/L (12-78); ALBUMIN 3.2 g/dL (3.4-5.0); ALKALINE PHOSPHATASE 67 U/L (46-116); ANION GAP 10 mmol/L (8-16); ASPARTATE AMINOTRANSFERASE 14 U/L (15-37); BILIRUBIN,TOTAL 0.4 mg/dL (0.1-1.0); CALCIUM, TOTAL 9.1 mg/dL (8.8-10.5); CARBON DIOXIDE 26 mmol/L (22-29); CHLORIDE 105 mmol/L (98-107); CHOL/HDL RATIO 2.6 (4.2-7.3); CHOLESTEROL 103 mg/dL (131-200); CREATININE 0.74 mg/dL (0.60-1.30); FREE T4 (FREE THYROXINE) 1.41 ng/dL (0.76-1.46); GLOMERULAR FILTR. RATE CALC > 60 mL/min (>60); GLUCOSE,RANDOM 90 mg/dL (70-110); HDL CHOLESTEROL 39 mg/dL (40-60); LDL CHOL (CALC.) 48 mg/dL (0-130); POTASSIUM 4.4 mmol/L (3.5-5.1); SODIUM SERUM 141 mmol/L (136-145); THYROID STIMULATING HORMONE 0.05 uIU/mL (0.36-3.74); TOTAL PROTEIN, SERUM 6.3 g/dL (6.4-8.2); TRIGLYCERIDES 79 mg/dL (15-150); UREA NITROGEN, BLOOD 11 mg/dL (7-18)
[2018-11-27] MEDS ORDERED: HydrOXYzine PAMOATE 50 MG CAPSULE PO PRN (09:45)
[2018-11-27] MEDS ORDERED: IBUPROFEN 600 MG TABLET PO PRN (09:45)
[2018-11-27] MEDS: ESCITALOPRAM OXALATE 10 MG TABLET PO SCH (10:16)
[2018-11-27] MEDS: CloNIDine HCL 0.1 MG TABLET PO SCH ×3 (12:45→20:59)
[2018-11-27] MEDS: GABAPENTIN 300 MG CAPSULE PO SCH ×2 (12:45→16:33)
[2018-11-28] VITALS (7 sets, daily range): BP systolic 110–123; BP diastolic 68–90
[2018-11-28] MEDS: LORazepam 2 MG TABLET PO PRN ×4 (01:18→17:34)
[2018-11-28] MEDS: CloNIDine HCL 0.1 MG TABLET PO SCH ×4 (05:48→22:17)
[2018-11-28] MEDS: AmLODIPine BESYLATE 5 MG TABLET PO SCH (08:37)
[2018-11-28] MEDS: ESCITALOPRAM OXALATE 10 MG TABLET PO SCH (08:37)
[2018-11-28] MEDS: GABAPENTIN 300 MG CAPSULE PO SCH ×3 (08:37→17:28)
[2018-11-28] MEDS: LISINOPRIL 20 MG TABLET PO SCH (08:37)
[2018-11-28] MEDS: HALOPERIDOL 5 MG TABLET PO PRN (09:09)
[2018-11-28] MEDS: MUPIROCIN CALCIUM 2% 22 GM OINTMENT TP SCH (17:27)
[2018-11-29] VITALS (7 sets, daily range): BP systolic 108–123; BP diastolic 60–86
[2018-11-29] MEDS: LORazepam 2 MG TABLET PO PRN ×5 (01:40→21:01)
[2018-11-29] MEDS: CloNIDine HCL 0.1 MG TABLET PO SCH ×4 (05:54→21:02)
[2018-11-29] MEDS: AmLODIPine BESYLATE 5 MG TABLET PO SCH (08:40)
[2018-11-29] MEDS: GABAPENTIN 300 MG CAPSULE PO SCH ×3 (08:40→16:37)
[2018-11-29] MEDS: ESCITALOPRAM OXALATE 10 MG TABLET PO SCH (08:41)
[2018-11-29] MEDS: LISINOPRIL 20 MG TABLET PO SCH (08:41)
[2018-11-29] MEDS: HALOPERIDOL 5 MG TABLET PO PRN (08:41)
[2018-11-29] MEDS: MUPIROCIN CALCIUM 2% 22 GM OINTMENT TP SCH ×2 (08:42→16:38)
[2018-11-30 01:04] VITALS: BP 114/69
[2018-11-30 01:13] VITALS: BP 114/69
[2018-11-30] MEDS: LORazepam 2 MG TABLET PO PRN ×2 (05:44→12:42)
[2018-11-30] MEDS: CloNIDine HCL 0.1 MG TABLET PO SCH ×2 (06:14→12:42)
[2018-11-30 09:08] VITALS: BP 133/81
[2018-11-30] MEDS: LISINOPRIL 20 MG TABLET PO SCH (09:23)
[2018-11-30] MEDS: GABAPENTIN 300 MG CAPSULE PO SCH ×2 (09:23→12:42)
[2018-11-30] MEDS: ESCITALOPRAM OXALATE 10 MG TABLET PO SCH (09:23)
[2018-11-30] MEDS: AmLODIPine BESYLATE 5 MG TABLET PO SCH (09:23)
[2018-11-30] MEDS: MUPIROCIN CALCIUM 2% 22 GM OINTMENT TP SCH (09:24)
[2018-11-30] MEDS ORDERED: MUPI1OIN5 TP (14:27)
[2018-11-30] MEDS ORDERED: CLON-570 PO (14:27)
== END 2018-11-30 14:54 | disposition home or self-care (01) | DRG 750 ==
LOC: B2S 22:15
PROVIDERS: ADMIT Psychiatry & Neurology Child & Adolescent Psychiatry; ATTEND Psychiatry & Neurology Child & Adolescent Psychiatry
DX: F25.1 Schizoaffective disorder, depressive type (principal); Z59.0 Homelessness; D64.9 Anemia, unspecified; E05.90 Thyrotoxicosis, unspecified without thyrotoxic crisis or storm; F10.10 Alcohol abuse, uncomplicated; I10 Essential (primary) hypertension; Z79.899 Other long term (current) drug therapy; F41.9 Anxiety disorder, unspecified; F19.10 Other psychoactive substance abuse, uncomplicated; Z71.51 Drug abuse counseling and surveillance of drug abuser
CPT/HCPCS: 83036; 84439; 84443; 87081

== ENCOUNTER 2018-12-26 16:43 | Inpatient (IN) | payer MEDICAID ==
[~2018-12-26] VITALS: Ht 175.3 cm; Wt 91.2 kg
[~2018-12-26 16:43] MED LIST changes: +CLON-570 PO; +MUPI1OIN5 TP
[2018-12-26] MEDS ORDERED: PNEUMOCOCCAL VACCINE POLYVALENT 0.5 ML VIAL [PPSV23] IM ONE (18:15)
[2018-12-26 19:20] VITALS: BP 108/60
[2018-12-26] MEDS ORDERED: ONDANSETRON HCL 4 MG TABLET PO PRN (20:00)
[2018-12-26] MEDS ORDERED: MAGNESIUM HYDROXIDE SUSPENSION 30 ML UDCUP PO PRN (20:00)
[2018-12-26] MEDS ORDERED: LOPERAMIDE HCL 2 MG CAPSULE PO PRN (20:00)
[2018-12-26] MEDS ORDERED: ACETAMINOPHEN 325 MG TABLET PO PRN (20:00)
[2018-12-26] MEDS ORDERED: IBUPROFEN 400 MG TABLET PO PRN (20:00)
[2018-12-26] MEDS ORDERED: CloNIDine HCL 0.1 MG TABLET PO PRN (20:00)
[2018-12-26] MEDS ORDERED: PETROLATUM,WHITE 28 GM JELLY TP PRN (20:00)
[2018-12-26] MEDS ORDERED: MAG HYDROX/AL HYDROX/SIMETH ES 30 ML SUSPENSION UDCUP PO PRN (20:00)
[2018-12-26] MEDS ORDERED: NICOTINE 14 MG/24 HOUR PATCH TD PRN (20:00)
[2018-12-26] MEDS ORDERED: ALBUTEROL SULFATE HFA 90 MCG/PUFF 8 GM INHALER IH PRN (20:00)
[2018-12-26] MEDS ORDERED: DOCUSATE SODIUM 100 MG CAPSULE PO PRN (20:00)
[2018-12-26] MEDS ORDERED: GuaiFENesin/D-METHORPHAN [SUGAR-FREE] 200-20MG/10 ML SYRUP UDCUP PO PRN (20:00)
[2018-12-27] MEDS: MUPIROCIN CALCIUM 2% 22 GM OINTMENT NASAL SCH ×2 (08:32→17:00)
[2018-12-27 08:52] LABS: BASOPHILS % (AUTO) 0.3 % (0.0-2.0); EOSINOPHILS % (AUTO) 1.7 % (1.0-6.0); HEMOGLOBIN 11.5 g/dL (13.5-17.5); LYMPHOCYTES # (AUTO) 1.2 K/uL (1.0-4.8); LYMPHOCYTES % (AUTO) 11.5 % (22.0-44.0); MEAN CORPUSCULAR HEMOGLOBIN 28.2 pg (26.0-34.0); MEAN CORPUSCULAR HGB CONC 32.8 G/dL (31.0-37.0); MEAN CORPUSCULAR VOLUME 86 fL (80-100); MONOCYTES # (AUTO) 0.6 K/uL (0.1-1.0); MONOCYTES % (AUTO) 5.3 % (2.0-9.0); NEUTROPHILS # (AUTO) 8.8 K/uL (1.8-7.7); NEUTROPHILS % (AUTO) 81.2 % (40.0-70.0); PLATELET COUNT (AUTO) 311 K/uL (150-450); RED BLOOD CELL COUNT(AUTO) 4.07 MIL/uL (4.50-5.90); RED CELL DISTRIBUTION WIDTH 13.2 % (11.5-14.5)
[2018-12-27 09:23] VITALS: BP 130/78
[2018-12-27 09:30] LABS: ALANINE AMINOTRANSFERASE 21 U/L (12-78); ALBUMIN 2.8 g/dL (3.4-5.0); ALKALINE PHOSPHATASE 62 U/L (46-116); ANION GAP 8 mmol/L (8-16); ASPARTATE AMINOTRANSFERASE 17 U/L (15-37); BILIRUBIN,TOTAL 0.4 mg/dL (0.1-1.0); CALCIUM, TOTAL 8.4 mg/dL (8.8-10.5); CARBON DIOXIDE 28 mmol/L (22-29); CHLORIDE 105 mmol/L (98-107); CHOL/HDL RATIO 2.4 (4.2-7.3); CHOLESTEROL 86 mg/dL (131-200); CREATININE 0.78 mg/dL (0.60-1.30); FREE T4 (FREE THYROXINE) 1.28 ng/dL (0.76-1.46); GLOMERULAR FILTR. RATE CALC > 60 mL/min (>60); GLUCOSE,RANDOM 110 mg/dL (70-110); HDL CHOLESTEROL 36 mg/dL (40-60); LDL CHOL (CALC.) 39 mg/dL (0-130); SODIUM SERUM 141 mmol/L (136-145); THYROID STIMULATING HORMONE 0.07 uIU/mL (0.36-3.74); TOTAL PROTEIN, SERUM 6.5 g/dL (6.4-8.2); TRIGLYCERIDES 54 mg/dL (15-150); UREA NITROGEN, BLOOD 11 mg/dL (7-18)
[2018-12-27 10:01] LABS: HEMOGLOBIN A1C 5.3 % (4.5-6.2)
[2018-12-27] MEDS: GABAPENTIN 300 MG CAPSULE PO SCH ×3 (10:18→17:00)
[2018-12-27] MEDS: LORazepam 2 MG TABLET PO PRN ×2 (10:18→17:00)
[2018-12-27] MEDS: ESCITALOPRAM OXALATE 10 MG TABLET PO SCH (10:18)
[2018-12-27 16:00] VITALS: BP 132/79
[2018-12-27] MEDS: CEPHALEXIN MONOHYDRATE 500 MG CAPSULE PO SCH (17:00)
[2018-12-27] MEDS: SULFAMETHOX/TRIMETH DS 800-160 MG/TABLET PO SCH (17:00)
[2018-12-27] MEDS: FERROUS SULFATE 325 MG EC TABLET PO SCH (17:00)
[2018-12-28] MEDS: LORazepam 2 MG TABLET PO PRN ×4 (00:02→16:59)
[2018-12-28 05:26] VITALS: BP 122/72
[2018-12-28] MEDS: FERROUS SULFATE 325 MG EC TABLET PO SCH ×3 (06:55→16:54)
[2018-12-28 08:01] VITALS: BP 133/93
[2018-12-28] MEDS: LISINOPRIL 20 MG TABLET PO SCH (08:15)
[2018-12-28] MEDS: ESCITALOPRAM OXALATE 10 MG TABLET PO SCH (08:15)
[2018-12-28] MEDS: SULFAMETHOX/TRIMETH DS 800-160 MG/TABLET PO SCH ×2 (08:15→16:54)
[2018-12-28] MEDS: CEPHALEXIN MONOHYDRATE 500 MG CAPSULE PO SCH ×4 (08:15→23:41)
[2018-12-28] MEDS: MUPIROCIN CALCIUM 2% 22 GM OINTMENT NASAL SCH ×2 (08:15→16:55)
[2018-12-28] MEDS: GABAPENTIN 300 MG CAPSULE PO SCH ×3 (08:15→16:55)
[2018-12-28] MEDS: AmLODIPine BESYLATE 5 MG TABLET PO SCH (08:16)
[2018-12-28 16:04] VITALS: BP 125/83
[2018-12-28] MEDS: ZOLPIDEM TARTRATE 10 MG TABLET PO PRN (21:16)
[2018-12-29] MEDS: LORazepam 2 MG TABLET PO PRN ×4 (00:24→17:00)
[2018-12-29 00:45] VITALS: BP 122/78
[2018-12-29] MEDS: FERROUS SULFATE 325 MG EC TABLET PO SCH ×3 (06:24→17:00)
[2018-12-29] MEDS: ESCITALOPRAM OXALATE 10 MG TABLET PO SCH (08:01)
[2018-12-29] MEDS: AmLODIPine BESYLATE 5 MG TABLET PO SCH (08:02)
[2018-12-29] MEDS: CEPHALEXIN MONOHYDRATE 500 MG CAPSULE PO SCH ×3 (08:02→23:59)
[2018-12-29] MEDS: GABAPENTIN 300 MG CAPSULE PO SCH ×3 (08:02→17:00)
[2018-12-29] MEDS: SULFAMETHOX/TRIMETH DS 800-160 MG/TABLET PO SCH ×2 (08:02→17:00)
[2018-12-29] MEDS: LISINOPRIL 20 MG TABLET PO SCH (08:02)
[2018-12-29] MEDS: MUPIROCIN CALCIUM 2% 22 GM OINTMENT NASAL SCH ×2 (08:03→17:00)
[2018-12-29 08:12] VITALS: BP 126/91
[2018-12-29] MEDS: ZOLPIDEM TARTRATE 10 MG TABLET PO PRN (20:56)
[2018-12-29 22:26] VITALS: BP 119/72
[2018-12-30] MEDS: LORazepam 2 MG TABLET PO PRN ×5 (00:15→16:51)
[2018-12-30 00:16] VITALS: BP 118/71
[2018-12-30] MEDS: FERROUS SULFATE 325 MG EC TABLET PO SCH ×3 (06:08→16:51)
[2018-12-30 08:03] VITALS: BP 134/87
[2018-12-30] MEDS: ESCITALOPRAM OXALATE 10 MG TABLET PO SCH (08:15)
[2018-12-30] MEDS: LISINOPRIL 20 MG TABLET PO SCH (08:15)
[2018-12-30] MEDS: GABAPENTIN 300 MG CAPSULE PO SCH ×3 (08:15→16:51)
[2018-12-30] MEDS: SULFAMETHOX/TRIMETH DS 800-160 MG/TABLET PO SCH ×2 (08:15→16:51)
[2018-12-30] MEDS: CEPHALEXIN MONOHYDRATE 500 MG CAPSULE PO SCH ×2 (08:15→16:51)
[2018-12-30] MEDS: AmLODIPine BESYLATE 5 MG TABLET PO SCH (08:15)
[2018-12-30] MEDS: MUPIROCIN CALCIUM 2% 22 GM OINTMENT NASAL SCH ×2 (08:16→16:51)
[2018-12-30] MEDS: ZOLPIDEM TARTRATE 10 MG TABLET PO PRN (20:03)
[2018-12-30] MEDS: OLANZapine 5 MG TABLET PO SCH (20:03)
[2018-12-31] MEDS: CEPHALEXIN MONOHYDRATE 500 MG CAPSULE PO SCH ×3 (00:42→16:15)
[2018-12-31] MEDS: LORazepam 2 MG TABLET PO PRN ×3 (06:31→17:16)
[2018-12-31] MEDS: FERROUS SULFATE 325 MG EC TABLET PO SCH ×3 (06:32→16:15)
[2018-12-31] MEDS: SULFAMETHOX/TRIMETH DS 800-160 MG/TABLET PO SCH ×2 (08:30→16:15)
[2018-12-31] MEDS: OLANZapine 5 MG TABLET PO SCH (08:30)
[2018-12-31] MEDS: AmLODIPine BESYLATE 5 MG TABLET PO SCH (08:30)
[2018-12-31] MEDS: ESCITALOPRAM OXALATE 10 MG TABLET PO SCH (08:30)
[2018-12-31] MEDS: GABAPENTIN 300 MG CAPSULE PO SCH ×3 (08:30→16:15)
[2018-12-31] MEDS: LISINOPRIL 20 MG TABLET PO SCH (08:31)
[2018-12-31 08:45] VITALS: BP 108/59
[2018-12-31] MEDS ORDERED: ESCITALOPRAM OXALATE 10 MG TABLET PO ONE (11:00)
[2018-12-31] MEDS ORDERED: OLANZapine 5 MG TABLET PO ONE (11:00)
[2018-12-31 16:00] VITALS: BP 106/78
[2018-12-31] MEDS: OLANZapine 10 MG TABLET PO SCH (21:59)
[2019-01-01] MEDS: CEPHALEXIN MONOHYDRATE 500 MG CAPSULE PO SCH ×4 (00:23→23:43)
[2019-01-01] MEDS: LORazepam 2 MG TABLET PO PRN ×4 (00:24→16:42)
[2019-01-01 05:08] VITALS: BP 114/73
[2019-01-01] MEDS: FERROUS SULFATE 325 MG EC TABLET PO SCH ×3 (06:40→16:42)
[2019-01-01] MEDS: ESCITALOPRAM OXALATE 20 MG TABLET PO SCH (08:14)
[2019-01-01] MEDS: OLANZapine 10 MG TABLET PO SCH ×2 (08:15→20:53)
[2019-01-01] MEDS: SULFAMETHOX/TRIMETH DS 800-160 MG/TABLET PO SCH ×2 (08:15→16:42)
[2019-01-01] MEDS: AmLODIPine BESYLATE 5 MG TABLET PO SCH (08:16)
[2019-01-01] MEDS: LISINOPRIL 20 MG TABLET PO SCH (08:17)
[2019-01-01] MEDS: GABAPENTIN 300 MG CAPSULE PO SCH ×3 (08:18→16:42)
[2019-01-01 09:24] VITALS: BP 103/56
[2019-01-01 16:00] VITALS: BP 108/65
[2019-01-01] MEDS: HALOPERIDOL 5 MG TABLET PO PRN (16:42)
[2019-01-01] MEDS: ZOLPIDEM TARTRATE 10 MG TABLET PO PRN (20:53)
[2019-01-02] MEDS: LORazepam 2 MG TABLET PO PRN ×3 (06:31→21:12)
[2019-01-02] MEDS: FERROUS SULFATE 325 MG EC TABLET PO SCH ×3 (06:31→17:06)
[2019-01-02 07:15] VITALS: BP 113/88
[2019-01-02] MEDS: AmLODIPine BESYLATE 5 MG TABLET PO SCH (08:28)
[2019-01-02] MEDS: OLANZapine 10 MG TABLET PO SCH ×2 (08:28→20:45)
[2019-01-02] MEDS: LISINOPRIL 20 MG TABLET PO SCH (08:28)
[2019-01-02] MEDS: SULFAMETHOX/TRIMETH DS 800-160 MG/TABLET PO SCH ×2 (08:28→17:06)
[2019-01-02] MEDS: CEPHALEXIN MONOHYDRATE 500 MG CAPSULE PO SCH ×2 (08:28→17:06)
[2019-01-02] MEDS: GABAPENTIN 300 MG CAPSULE PO SCH ×3 (08:28→17:06)
[2019-01-02] MEDS: ESCITALOPRAM OXALATE 20 MG TABLET PO SCH (08:28)
[2019-01-02 09:47] VITALS: BP 120/68
[2019-01-02 16:00] VITALS: BP 116/66
[2019-01-02] MEDS: ZOLPIDEM TARTRATE 10 MG TABLET PO PRN (20:45)
[2019-01-03] MEDS: CEPHALEXIN MONOHYDRATE 500 MG CAPSULE PO SCH ×4 (00:27→23:53)
[2019-01-03 00:37] VITALS: BP 99/56
[2019-01-03] MEDS: LORazepam 2 MG TABLET PO PRN ×4 (06:38→23:53)
[2019-01-03] MEDS: FERROUS SULFATE 325 MG EC TABLET PO SCH ×3 (06:38→16:43)
[2019-01-03 08:54] VITALS: BP 108/76
[2019-01-03] MEDS: LISINOPRIL 20 MG TABLET PO SCH (09:34)
[2019-01-03] MEDS: GABAPENTIN 300 MG CAPSULE PO SCH ×3 (09:34→16:44)
[2019-01-03] MEDS: AmLODIPine BESYLATE 5 MG TABLET PO SCH (09:34)
[2019-01-03] MEDS: SULFAMETHOX/TRIMETH DS 800-160 MG/TABLET PO SCH ×2 (09:34→16:44)
[2019-01-03] MEDS: ESCITALOPRAM OXALATE 20 MG TABLET PO SCH (09:34)
[2019-01-03] MEDS: OLANZapine 10 MG TABLET PO SCH ×2 (09:34→20:36)
[2019-01-03 16:11] VITALS: BP 115/66
[2019-01-03] MEDS: HALOPERIDOL 5 MG TABLET PO PRN (16:44)
[2019-01-03] MEDS: ZOLPIDEM TARTRATE 10 MG TABLET PO PRN (20:36)
[2019-01-04 06:03] VITALS: BP 104/62
[2019-01-04] MEDS: LORazepam 2 MG TABLET PO PRN ×2 (06:43→08:46)
[2019-01-04] MEDS: FERROUS SULFATE 325 MG EC TABLET PO SCH ×3 (06:52→16:25)
[2019-01-04 08:08] VITALS: BP 131/70
[2019-01-04] MEDS: SULFAMETHOX/TRIMETH DS 800-160 MG/TABLET PO SCH ×2 (08:45→16:25)
[2019-01-04] MEDS: LISINOPRIL 20 MG TABLET PO SCH (08:46)
[2019-01-04] MEDS: ESCITALOPRAM OXALATE 20 MG TABLET PO SCH (08:46)
[2019-01-04] MEDS: GABAPENTIN 300 MG CAPSULE PO SCH ×3 (08:46→16:25)
[2019-01-04] MEDS: AmLODIPine BESYLATE 5 MG TABLET PO SCH (08:46)
[2019-01-04] MEDS: CEPHALEXIN MONOHYDRATE 500 MG CAPSULE PO SCH ×2 (08:46→16:25)
[2019-01-04] MEDS: OLANZapine 10 MG TABLET PO SCH (08:46)
[2019-01-04] MEDS ORDERED: BACTDSB PO (15:54)
[2019-01-04] MEDS ORDERED: LISI-662 PO (15:54)
[2019-01-04] MEDS ORDERED: FERR-89 PO (15:54)
[2019-01-04] MEDS ORDERED: GABA-531 PO (15:54)
[2019-01-04] MEDS ORDERED: CEPH500 PO (15:54)
[2019-01-04] MEDS ORDERED: OLAN10TA3 PO (15:54)
[2019-01-04] MEDS ORDERED: AMLO-511 PO (15:54)
[2019-01-04] MEDS ORDERED: ESCI20TA PO (15:54)
[2019-01-04 17:20] VITALS: BP 130/86
== END 2019-01-04 18:00 | disposition home or self-care (01) | DRG 753 ==
LOC: B3A 18:09
PROVIDERS: ADMIT Psychiatry & Neurology Psychiatry; ATTEND Psychiatry & Neurology Child & Adolescent Psychiatry
DX: F31.4 Bipolar disorder, current episode depressed, severe, without psychotic features (principal); F11.20 Opioid dependence, uncomplicated; R45.851 Suicidal ideations; I10 Essential (primary) hypertension; F10.10 Alcohol abuse, uncomplicated; F25.1 Schizoaffective disorder, depressive type; D64.9 Anemia, unspecified; L98.9 Disorder of the skin and subcutaneous tissue, unspecified; F41.9 Anxiety disorder, unspecified; F19.10 Other psychoactive substance abuse, uncomplicated; Z78.9 Other specified health status; Z79.899 Other long term (current) drug therapy; Z71.51 Drug abuse counseling and surveillance of drug abuser; Z71.41 Alcohol abuse counseling and surveillance of alcoholic
CPT/HCPCS: 83036; 84439; 84443; 87081

== ENCOUNTER 2019-05-19 01:21 | Inpatient (IN) | payer MEDICAID ==
[~2019-05-19] VITALS: Ht 175.3 cm; Wt 86.6 kg
[~2019-05-19 01:21] MED LIST changes: -AMLO-511 PO; +AMLO10TA7 PO; -CLON-570 PO; -ESCI10TA PO; +ESCI20TA PO; +LISI-661 PO; -LISI-662 PO; -MUPI1OIN5 TP; +OLAN10TA3 PO
[2019-05-19] MEDS ORDERED: HALOPERIDOL 5 MG TABLET PO PRN (02:30)
[2019-05-19] MEDS ORDERED: ZOLPIDEM TARTRATE 10 MG TABLET PO PRN (02:30)
[2019-05-19 04:00] VITALS: BP 159/83
[2019-05-19] MEDS ORDERED: PNEUMOCOCCAL VACCINE POLYVALENT 0.5 ML VIAL [PPSV23] IM ONE (06:15)
[2019-05-19 09:00] VITALS: BP 149/110
[2019-05-19] MEDS ORDERED: ONDANSETRON HCL 4 MG TABLET PO PRN (12:15)
[2019-05-19] MEDS ORDERED: MAGNESIUM HYDROXIDE SUSPENSION 30 ML UDCUP PO PRN (12:15)
[2019-05-19] MEDS ORDERED: PETROLATUM,WHITE 28 GM JELLY TP PRN (12:15)
[2019-05-19] MEDS ORDERED: MAG HYDROX/AL HYDROX/SIMETH ES 30 ML SUSPENSION UDCUP PO PRN (12:15)
[2019-05-19] MEDS ORDERED: BENZOCAINE/MENTHOL LOZENGE MM PRN (12:15)
[2019-05-19] MEDS ORDERED: LOPERAMIDE HCL 2 MG CAPSULE PO PRN (12:15)
[2019-05-19] MEDS ORDERED: DOCUSATE SODIUM 100 MG CAPSULE PO PRN (12:15)
[2019-05-19] MEDS ORDERED: ALBUTEROL SULFATE HFA 90 MCG/PUFF 8 GM INHALER IH PRN (12:15)
[2019-05-19] MEDS ORDERED: BACITRACIN 28.4 GM OINTMENT TP PRN (12:15)
[2019-05-19] MEDS ORDERED: IBUPROFEN 600 MG TABLET PO PRN (12:15)
[2019-05-19] MEDS ORDERED: OMEPRAZOLE 20 MG CAPSULE PO PRN (12:15)
[2019-05-19] MEDS ORDERED: CloNIDine HCL 0.1 MG TABLET PO PRN (12:15)
[2019-05-19] MEDS ORDERED: ACETAMINOPHEN 325 MG TABLET PO PRN (12:15)
[2019-05-19] MEDS: AmLODIPine BESYLATE 10 MG TABLET PO SCH (12:56)
[2019-05-19] MEDS: GABAPENTIN 300 MG CAPSULE PO SCH ×2 (12:56→17:20)
[2019-05-19] MEDS: LORazepam 2 MG TABLET PO PRN ×2 (12:57→17:41)
[2019-05-19] MEDS: LISINOPRIL 10 MG TABLET PO SCH (17:20)
[2019-05-19 17:24] VITALS: BP 140/99
[2019-05-20] MEDS: AmLODIPine BESYLATE 10 MG TABLET PO SCH (09:16)
[2019-05-20] MEDS: LISINOPRIL 10 MG TABLET PO SCH (09:16)
[2019-05-20] MEDS: LORazepam 2 MG TABLET PO PRN (09:17)
[2019-05-20] MEDS: GABAPENTIN 300 MG CAPSULE PO SCH ×2 (09:17→12:27)
[2019-05-20 09:51] VITALS: BP 162/100
[2019-05-20] MEDS ORDERED: MUPI1OIN5 NASAL (14:42)
[2019-05-20] MEDS ORDERED: MUPIROCIN CALCIUM 2% 22 GM OINTMENT NASAL SCH (17:00)
== END 2019-05-20 16:00 | disposition home or self-care (01) | DRG 753 ==
LOC: 3EI 01:21
PROVIDERS: ADMIT Psychiatry & Neurology Psychiatry; ATTEND Psychiatry & Neurology Psychiatry
DX: F31.31 Bipolar disorder, current episode depressed, mild (principal); F10.10 Alcohol abuse, uncomplicated; F14.10 Cocaine abuse, uncomplicated; F12.10 Cannabis abuse, uncomplicated; F15.10 Other stimulant abuse, uncomplicated; I10 Essential (primary) hypertension; F41.9 Anxiety disorder, unspecified; G47.00 Insomnia, unspecified; Z59.0 Homelessness
CPT/HCPCS: 87081

== ENCOUNTER 2019-07-13 23:55 | Inpatient (IN) | payer MEDICAID ==
[~2019-07-13] VITALS: Ht 175.3 cm; Wt 86.0 kg
[~2019-07-13 23:55] MED LIST changes: -ESCI20TA PO; +MUPI1OIN5 NASAL; -OLAN10TA3 PO
[2019-07-14] VITALS (10 sets, daily range): BP systolic 111–142; BP diastolic 68–82
[2019-07-14] MEDS ORDERED: HALOPERIDOL 5 MG TABLET PO PRN (02:00)
[2019-07-14] MEDS ORDERED: HydrOXYzine PAMOATE 50 MG CAPSULE PO PRN (03:45)
[2019-07-14] MEDS ORDERED: IBUPROFEN 600 MG TABLET PO PRN (03:45)
[2019-07-14] MEDS ORDERED: CloNIDine HCL 0.1 MG TABLET PO PRN ×2 (03:45→15:45)
[2019-07-14] MEDS ORDERED: MAG HYDROX/AL HYDROX/SIMETH ES 30 ML SUSPENSION UDCUP PO PRN ×2 (03:45→15:45)
[2019-07-14] MEDS ORDERED: PNEUMOCOCCAL VACCINE POLYVALENT 0.5 ML VIAL [PPSV23] IM ONE (05:15)
[2019-07-14] MEDS ORDERED: INFLUENZA VIRUS VACCINE QVS 2019-20 (3YR+)/PF 60 MCG/0.5 ML SYRINGE IM ONE (05:15)
[2019-07-14] MEDS: CloNIDine HCL 0.1 MG TABLET PO SCH ×4 (07:06→21:11)
[2019-07-14] MEDS ORDERED: CloNIDine HCL 0.1 MG TABLET PO SCH (12:00)
[2019-07-14] MEDS: GABAPENTIN 300 MG CAPSULE PO SCH ×2 (13:09→17:08)
[2019-07-14] MEDS: LORazepam 2 MG TABLET PO PRN (13:09)
[2019-07-14] MEDS ORDERED: PETROLATUM,WHITE 28 GM JELLY TP PRN (15:45)
[2019-07-14] MEDS ORDERED: DOCUSATE SODIUM 100 MG CAPSULE PO PRN (15:45)
[2019-07-14] MEDS ORDERED: ACETAMINOPHEN 325 MG TABLET PO PRN (15:45)
[2019-07-14] MEDS ORDERED: GuaiFENesin/D-METHORPHAN [SUGAR-FREE] 200-20MG/10 ML SYRUP UDCUP PO PRN (15:45)
[2019-07-14] MEDS ORDERED: ONDANSETRON HCL 4 MG TABLET PO PRN (15:45)
[2019-07-14] MEDS ORDERED: NICOTINE 14 MG/24 HOUR PATCH TD PRN (15:45)
[2019-07-14] MEDS ORDERED: IBUPROFEN 400 MG TABLET PO PRN (15:45)
[2019-07-14] MEDS ORDERED: LOPERAMIDE HCL 2 MG CAPSULE PO PRN (15:45)
[2019-07-14] MEDS ORDERED: ALBUTEROL SULFATE HFA 90 MCG/PUFF 8 GM INHALER IH PRN (15:45)
[2019-07-14] MEDS ORDERED: MAGNESIUM HYDROXIDE SUSPENSION 30 ML UDCUP PO PRN (15:45)
[2019-07-14] MEDS: OLANZapine 10 MG TABLET PO SCH (17:08)
[2019-07-14] MEDS: LISINOPRIL 10 MG TABLET PO SCH (17:08)
[2019-07-15] MEDS: CloNIDine HCL 0.1 MG TABLET PO SCH ×4 (06:00→22:17)
[2019-07-15 06:34] VITALS: BP 126/58
[2019-07-15 08:00] VITALS: BP 129/76
[2019-07-15 08:37] VITALS: BP 129/76
[2019-07-15] MEDS: OLANZapine 10 MG TABLET PO SCH ×2 (09:18→16:46)
[2019-07-15] MEDS: LISINOPRIL 10 MG TABLET PO SCH ×2 (09:18→16:46)
[2019-07-15] MEDS: GABAPENTIN 300 MG CAPSULE PO SCH ×3 (09:18→16:46)
[2019-07-15] MEDS: AmLODIPine BESYLATE 10 MG TABLET PO SCH (09:19)
[2019-07-15] MEDS: ESCITALOPRAM OXALATE 20 MG TABLET PO SCH (09:19)
[2019-07-15 16:00] VITALS: BP 116/75
[2019-07-15 16:13] VITALS: BP 116/75
[2019-07-15 22:18] VITALS: BP 110/66
[2019-07-16] VITALS (7 sets, daily range): BP systolic 104–129; BP diastolic 66–81
[2019-07-16] MEDS: CloNIDine HCL 0.1 MG TABLET PO SCH ×4 (06:34→21:21)
[2019-07-16 08:17] LABS: HEMOGLOBIN A1C 5.2 % (4.5-6.2)
[2019-07-16] MEDS: ESCITALOPRAM OXALATE 20 MG TABLET PO SCH (08:40)
[2019-07-16] MEDS: OLANZapine 10 MG TABLET PO SCH ×2 (08:40→16:47)
[2019-07-16] MEDS: GABAPENTIN 300 MG CAPSULE PO SCH ×3 (08:40→16:47)
[2019-07-16] MEDS: AmLODIPine BESYLATE 10 MG TABLET PO SCH (08:41)
[2019-07-16] MEDS: LISINOPRIL 10 MG TABLET PO SCH ×2 (08:41→16:47)
[2019-07-16 08:47] LABS: FREE T4 (FREE THYROXINE) 0.83 ng/dL (0.76-1.46); THYROID STIMULATING HORMONE 0.13 uIU/mL (0.36-3.74)
[2019-07-16] MEDS: LORazepam 2 MG TABLET PO PRN (16:47)
[2019-07-16] MEDS: ZOLPIDEM TARTRATE 10 MG TABLET PO PRN (21:21)
[2019-07-17 06:16] VITALS: BP 132/79
[2019-07-17] MEDS: CloNIDine HCL 0.1 MG TABLET PO SCH ×4 (06:20→21:13)
[2019-07-17 06:27] VITALS: BP 132/79
[2019-07-17] MEDS: LORazepam 2 MG TABLET PO PRN ×3 (07:02→20:46)
[2019-07-17] MEDS: OLANZapine 10 MG TABLET PO SCH ×2 (09:00→16:31)
[2019-07-17] MEDS: ESCITALOPRAM OXALATE 20 MG TABLET PO SCH (09:01)
[2019-07-17] MEDS: GABAPENTIN 300 MG CAPSULE PO SCH ×3 (09:01→16:31)
[2019-07-17] MEDS: LISINOPRIL 10 MG TABLET PO SCH ×2 (09:02→16:31)
[2019-07-17] MEDS: AmLODIPine BESYLATE 10 MG TABLET PO SCH (09:02)
[2019-07-17 16:06] VITALS: BP 125/75
[2019-07-17 21:12] VITALS: BP 134/86
[2019-07-17] MEDS: ZOLPIDEM TARTRATE 10 MG TABLET PO PRN (21:13)
[2019-07-18 06:33] VITALS: BP 125/73
[2019-07-18 06:34] VITALS: BP 125/73
[2019-07-18] MEDS: CloNIDine HCL 0.1 MG TABLET PO SCH ×4 (06:35→20:38)
[2019-07-18] MEDS: LORazepam 2 MG TABLET PO PRN ×2 (06:36→16:01)
[2019-07-18] MEDS: GABAPENTIN 300 MG CAPSULE PO SCH ×3 (08:26→16:00)
[2019-07-18] MEDS: OLANZapine 10 MG TABLET PO SCH ×2 (08:26→16:00)
[2019-07-18] MEDS: ESCITALOPRAM OXALATE 20 MG TABLET PO SCH (08:26)
[2019-07-18] MEDS: AmLODIPine BESYLATE 10 MG TABLET PO SCH (08:27)
[2019-07-18 09:00] VITALS: BP 118/78
[2019-07-18] MEDS: LISINOPRIL 10 MG TABLET PO SCH ×2 (09:49→16:29)
[2019-07-18 16:15] VITALS: BP 118/61
[2019-07-18] MEDS: ZOLPIDEM TARTRATE 10 MG TABLET PO PRN (20:38)
[2019-07-19] MEDS: LORazepam 2 MG TABLET PO PRN ×4 (04:00→16:56)
[2019-07-19 06:37] VITALS: BP 114/72
[2019-07-19 08:38] VITALS: BP 138/88
[2019-07-19] MEDS: LISINOPRIL 10 MG TABLET PO SCH ×2 (08:38→16:37)
[2019-07-19] MEDS: GABAPENTIN 300 MG CAPSULE PO SCH ×3 (08:38→16:37)
[2019-07-19] MEDS: AmLODIPine BESYLATE 10 MG TABLET PO SCH (08:39)
[2019-07-19] MEDS: OLANZapine 10 MG TABLET PO SCH ×2 (08:39→16:37)
[2019-07-19] MEDS: ESCITALOPRAM OXALATE 20 MG TABLET PO SCH (08:39)
[2019-07-19 16:19] VITALS: BP_SYST 101; BP_SYST 123; BP_DIAS 74; BP_DIAS 78
[2019-07-19] MEDS: ZOLPIDEM TARTRATE 10 MG TABLET PO PRN (21:27)
[2019-07-20 06:03] VITALS: BP 141/84
[2019-07-20] MEDS: LORazepam 2 MG TABLET PO PRN (07:03)
[2019-07-20 08:18] VITALS: BP 148/95
[2019-07-20] MEDS ORDERED: ESCI20TA36 PO (08:49)
[2019-07-20] MEDS ORDERED: GABA-531 PO (08:49)
[2019-07-20] MEDS ORDERED: OLAN10TA20 PO (08:49)
[2019-07-20] MEDS: ESCITALOPRAM OXALATE 20 MG TABLET PO SCH (09:04)
[2019-07-20] MEDS: OLANZapine 10 MG TABLET PO SCH (09:04)
[2019-07-20] MEDS: LISINOPRIL 10 MG TABLET PO SCH (09:05)
[2019-07-20] MEDS: AmLODIPine BESYLATE 10 MG TABLET PO SCH (09:05)
[2019-07-20] MEDS: GABAPENTIN 300 MG CAPSULE PO SCH ×2 (09:06→13:25)
== END 2019-07-20 13:55 | disposition home or self-care (01) | DRG 753 ==
LOC: B3A 07-14 01:45
PROVIDERS: ADMIT Psychiatry & Neurology Psychiatry; ATTEND Psychiatry & Neurology Psychiatry
DX: F31.4 Bipolar disorder, current episode depressed, severe, without psychotic features (principal); F10.10 Alcohol abuse, uncomplicated; Z71.41 Alcohol abuse counseling and surveillance of alcoholic; F11.10 Opioid abuse, uncomplicated; F12.10 Cannabis abuse, uncomplicated; F15.10 Other stimulant abuse, uncomplicated; F17.200 Nicotine dependence, unspecified, uncomplicated; I10 Essential (primary) hypertension; Z59.0 Homelessness; Z71.6 Tobacco abuse counseling; Z79.899 Other long term (current) drug therapy; Z28.21 Immunization not carried out because of patient refusal
CPT/HCPCS: 83036; 84439; 84443; 87081

== ENCOUNTER 2019-09-24 22:45 | Inpatient (IN) | payer MEDICAID ==
[~2019-09-24] VITALS: Ht 175.3 cm; Wt 89.0 kg
[~2019-09-24 22:45] MED LIST changes: +ESCI20TA43 PO; -MUPI1OIN5 NASAL; +OLAN10TA20 PO
[2019-09-25] MEDS ORDERED: ZOLPIDEM TARTRATE 10 MG TABLET PO PRN (04:00)
[2019-09-25 04:40] VITALS: BP 119/73
[2019-09-25 08:26] VITALS: BP 132/76
[2019-09-25] MEDS ORDERED: ACETAMINOPHEN 325 MG TABLET PO PRN (10:30)
[2019-09-25] MEDS ORDERED: CloNIDine HCL 0.1 MG TABLET PO PRN (10:30)
[2019-09-25] MEDS ORDERED: ALBUTEROL SULFATE HFA 90 MCG/PUFF 8 GM INHALER IH PRN (10:30)
[2019-09-25] MEDS ORDERED: PETROLATUM,WHITE 28 GM JELLY TP PRN (10:30)
[2019-09-25] MEDS ORDERED: DOCUSATE SODIUM 100 MG CAPSULE PO PRN (10:30)
[2019-09-25] MEDS ORDERED: LOPERAMIDE HCL 2 MG CAPSULE PO PRN (10:30)
[2019-09-25] MEDS ORDERED: NICOTINE 14 MG/24 HOUR PATCH TD PRN (10:30)
[2019-09-25] MEDS ORDERED: MAG HYDROX/AL HYDROX/SIMETH ES 30 ML SUSPENSION UDCUP PO PRN (10:30)
[2019-09-25] MEDS ORDERED: IBUPROFEN 400 MG TABLET PO PRN (10:30)
[2019-09-25] MEDS ORDERED: GuaiFENesin/D-METHORPHAN [SUGAR-FREE] 200-20MG/10 ML SYRUP UDCUP PO PRN (10:30)
[2019-09-25] MEDS ORDERED: MAGNESIUM HYDROXIDE SUSPENSION 30 ML UDCUP PO PRN (10:30)
[2019-09-25] MEDS ORDERED: ONDANSETRON HCL 4 MG TABLET PO PRN (10:30)
[2019-09-25] MEDS: GABAPENTIN 300 MG CAPSULE PO SCH ×3 (13:00→17:04)
[2019-09-25] MEDS: OLANZapine 10 MG TABLET PO SCH ×2 (14:14→17:05)
[2019-09-25] MEDS: ESCITALOPRAM OXALATE 20 MG TABLET PO SCH (14:15)
[2019-09-25 16:00] VITALS: BP 138/87
[2019-09-25] MEDS: LISINOPRIL 10 MG TABLET PO SCH (17:05)
[2019-09-26 06:40] VITALS: BP 129/79
[2019-09-26] MEDS: AmLODIPine BESYLATE 10 MG TABLET PO SCH (08:20)
[2019-09-26] MEDS: ESCITALOPRAM OXALATE 20 MG TABLET PO SCH (08:20)
[2019-09-26] MEDS: LISINOPRIL 10 MG TABLET PO SCH ×2 (08:20→16:59)
[2019-09-26] MEDS: GABAPENTIN 300 MG CAPSULE PO SCH ×3 (08:22→16:59)
[2019-09-26 08:28] VITALS: BP 127/93
[2019-09-26] MEDS: OLANZapine 10 MG TABLET PO SCH ×2 (10:11→16:59)
[2019-09-26 16:08] VITALS: BP 124/74
[2019-09-27 06:24] VITALS: BP 145/80
[2019-09-27] MEDS: GABAPENTIN 300 MG CAPSULE PO SCH ×3 (08:53→16:20)
[2019-09-27] MEDS: AmLODIPine BESYLATE 10 MG TABLET PO SCH (08:53)
[2019-09-27] MEDS: ESCITALOPRAM OXALATE 20 MG TABLET PO SCH (08:53)
[2019-09-27] MEDS: OLANZapine 10 MG TABLET PO SCH ×2 (08:53→16:20)
[2019-09-27] MEDS: LISINOPRIL 10 MG TABLET PO SCH ×2 (08:53→16:20)
[2019-09-27 14:00] VITALS: BP 132/69
[2019-09-27 18:07] VITALS: BP 128/83
[2019-09-28 05:11] VITALS: BP 118/78
[2019-09-28 08:14] VITALS: BP 152/103
[2019-09-28] MEDS: ESCITALOPRAM OXALATE 20 MG TABLET PO SCH (08:40)
[2019-09-28] MEDS: LISINOPRIL 10 MG TABLET PO SCH ×2 (08:40→16:44)
[2019-09-28] MEDS: OLANZapine 10 MG TABLET PO SCH ×2 (08:40→16:44)
[2019-09-28] MEDS: AmLODIPine BESYLATE 10 MG TABLET PO SCH (08:40)
[2019-09-28] MEDS: GABAPENTIN 300 MG CAPSULE PO SCH ×3 (08:41→16:45)
[2019-09-28] MEDS: LORazepam 1 MG TABLET PO PRN (09:38)
[2019-09-28 16:00] VITALS: BP 132/89
[2019-09-29 06:44] VITALS: BP 133/81
[2019-09-29] MEDS: LORazepam 1 MG TABLET PO PRN ×3 (07:00→17:11)
[2019-09-29 08:00] VITALS: BP 121/94
[2019-09-29] MEDS: GABAPENTIN 300 MG CAPSULE PO SCH ×3 (08:28→17:11)
[2019-09-29] MEDS: ESCITALOPRAM OXALATE 20 MG TABLET PO SCH (08:28)
[2019-09-29] MEDS: OLANZapine 10 MG TABLET PO SCH ×2 (08:28→17:11)
[2019-09-29] MEDS: LISINOPRIL 10 MG TABLET PO SCH ×2 (08:29→17:11)
[2019-09-29] MEDS: AmLODIPine BESYLATE 10 MG TABLET PO SCH (08:29)
[2019-09-29 09:00] VITALS: BP 128/79
[2019-09-29 16:00] VITALS: BP 124/73
[2019-09-30 06:45] VITALS: BP 125/75
[2019-09-30 08:00] VITALS: BP 126/68
[2019-09-30] MEDS: ESCITALOPRAM OXALATE 20 MG TABLET PO SCH (08:16)
[2019-09-30] MEDS: OLANZapine 10 MG TABLET PO SCH ×2 (08:46→16:30)
[2019-09-30] MEDS: AmLODIPine BESYLATE 10 MG TABLET PO SCH (08:46)
[2019-09-30] MEDS: GABAPENTIN 300 MG CAPSULE PO SCH ×3 (08:46→16:30)
[2019-09-30] MEDS: LISINOPRIL 10 MG TABLET PO SCH ×2 (08:46→16:31)
[2019-09-30 16:17] VITALS: BP 117/73
[2019-09-30] MEDS: LORazepam 1 MG TABLET PO PRN (16:31)
[2019-10-01 06:41] VITALS: BP 138/77
[2019-10-01] MEDS: LORazepam 1 MG TABLET PO PRN ×2 (07:16→16:15)
[2019-10-01] MEDS: LISINOPRIL 10 MG TABLET PO SCH ×2 (08:46→16:15)
[2019-10-01] MEDS: OLANZapine 10 MG TABLET PO SCH ×2 (08:46→16:15)
[2019-10-01] MEDS: AmLODIPine BESYLATE 10 MG TABLET PO SCH (08:46)
[2019-10-01] MEDS: GABAPENTIN 300 MG CAPSULE PO SCH ×3 (08:47→16:15)
[2019-10-01] MEDS: ESCITALOPRAM OXALATE 20 MG TABLET PO SCH (08:50)
[2019-10-01 09:26] VITALS: BP 145/79
[2019-10-01 16:22] VITALS: BP 112/73
[2019-10-02 00:54] VITALS: BP 127/81
[2019-10-02 08:11] VITALS: BP 130/90
[2019-10-02] MEDS: GABAPENTIN 300 MG CAPSULE PO SCH ×3 (08:39→17:39)
[2019-10-02] MEDS: OLANZapine 10 MG TABLET PO SCH ×2 (08:39→17:40)
[2019-10-02] MEDS: AmLODIPine BESYLATE 10 MG TABLET PO SCH (08:39)
[2019-10-02] MEDS: LISINOPRIL 10 MG TABLET PO SCH ×2 (08:39→17:40)
[2019-10-02] MEDS: ESCITALOPRAM OXALATE 20 MG TABLET PO SCH (08:39)
[2019-10-02] MEDS: HALOPERIDOL 5 MG TABLET PO PRN ×2 (10:47→17:40)
[2019-10-02] MEDS: LORazepam 1 MG TABLET PO PRN ×2 (12:21→17:40)
[2019-10-02 16:10] VITALS: BP 103/79
[2019-10-03 06:17] VITALS: BP 107/65
[2019-10-03] MEDS: OLANZapine 10 MG TABLET PO SCH ×2 (08:29→16:55)
[2019-10-03] MEDS: AmLODIPine BESYLATE 10 MG TABLET PO SCH (08:29)
[2019-10-03] MEDS: LISINOPRIL 10 MG TABLET PO SCH ×2 (08:29→16:55)
[2019-10-03] MEDS: GABAPENTIN 300 MG CAPSULE PO SCH ×3 (08:30→16:55)
[2019-10-03 08:40] VITALS: BP 140/85
[2019-10-03] MEDS: ESCITALOPRAM OXALATE 20 MG TABLET PO SCH (08:56)
[2019-10-03] MEDS: LORazepam 1 MG TABLET PO PRN ×3 (09:02→18:04)
[2019-10-03 16:56] VITALS: BP 111/72
[2019-10-03] MEDS: HALOPERIDOL 5 MG TABLET PO PRN (18:04)
[2019-10-04 02:04] VITALS: BP 120/65
[2019-10-04 08:27] VITALS: BP 132/65
[2019-10-04] MEDS: ESCITALOPRAM OXALATE 20 MG TABLET PO SCH (08:28)
[2019-10-04] MEDS: AmLODIPine BESYLATE 10 MG TABLET PO SCH (08:28)
[2019-10-04] MEDS: LISINOPRIL 10 MG TABLET PO SCH (08:28)
[2019-10-04] MEDS: OLANZapine 10 MG TABLET PO SCH (08:28)
[2019-10-04] MEDS: GABAPENTIN 300 MG CAPSULE PO SCH ×2 (08:28→12:15)
[2019-10-04] MEDS ORDERED: AMLO10TA7 PO (12:16)
[2019-10-04] MEDS ORDERED: LISI-661 PO (12:16)
[2019-10-04] MEDS ORDERED: GABA-531 PO (12:16)
[2019-10-04] MEDS ORDERED: ESCI20TA PO (12:16)
[2019-10-04] MEDS ORDERED: OLAN10TA3 PO (12:16)
== END 2019-10-04 15:20 | disposition home or self-care (01) | DRG 753 ==
LOC: B3A 09-25 04:00
PROVIDERS: ADMIT Psychiatry & Neurology Psychiatry; ATTEND Psychiatry & Neurology Psychiatry
DX: F31.9 Bipolar disorder, unspecified (principal); R45.851 Suicidal ideations; F20.9 Schizophrenia, unspecified; D64.9 Anemia, unspecified; F19.10 Other psychoactive substance abuse, uncomplicated; I10 Essential (primary) hypertension; Z59.0 Homelessness
CPT/HCPCS: 84439

== ENCOUNTER 2019-10-07 11:21 | Inpatient (IN) | payer MEDICAID ==
[~2019-10-07] VITALS: Ht 175.3 cm; Wt 86.2 kg
[~2019-10-07 11:21] MED LIST changes: +ESCI20TA PO; -ESCI20TA43 PO; -OLAN10TA20 PO; +OLAN10TA3 PO
[2019-10-07 12:21] LABS: BASOPHILS % (AUTO) 0.5 % (0.0-2.0); HEMATOCRIT 39.5 % (41-53); HEMOGLOBIN 13.3 g/dL (13.5-17.5); LYMPHOCYTES # (AUTO) 1.2 K/uL (1.0-4.8); LYMPHOCYTES % (AUTO) 17.9 % (22.0-44.0); MEAN CORPUSCULAR HEMOGLOBIN 28.4 pg (26.0-34.0); MEAN CORPUSCULAR HGB CONC 33.7 G/dL (31.0-37.0); MEAN CORPUSCULAR VOLUME 84 fL (80-100); MONOCYTES # (AUTO) 0.4 K/uL (0.1-1.0); NEUTROPHILS # (AUTO) 5.1 K/uL (1.8-7.7); NEUTROPHILS % (AUTO) 73.6 % (40.0-70.0); PLATELET COUNT (AUTO) 258 K/uL (150-450); RED BLOOD CELL COUNT(AUTO) 4.69 MIL/uL (4.50-5.90); RED CELL DISTRIBUTION WIDTH 13.3 % (11.5-14.5)
[2019-10-07 12:28] LABS: ANION GAP 8 mmol/L (8-16); CALCIUM, TOTAL 8.7 mg/dL (8.8-10.5); CARBON DIOXIDE 28 mmol/L (22-29); CHLORIDE 105 mmol/L (98-107); CREATININE 0.61 mg/dL (0.60-1.30); GLOMERULAR FILTR. RATE CALC > 60 mL/min (>60); GLUCOSE,RANDOM 132 mg/dL (70-110); POTASSIUM 3.7 mmol/L (3.5-5.1); SODIUM SERUM 141 mmol/L (136-145); UREA NITROGEN, BLOOD 11 mg/dL (7-18)
[2019-10-07 12:34] LABS: ALANINE AMINOTRANSFERASE 31 U/L (12-78); ALBUMIN 3.3 g/dL (3.4-5.0); ALKALINE PHOSPHATASE 93 U/L (46-116); ASPARTATE AMINOTRANSFERASE 17 U/L (15-37); BILIRUBIN,TOTAL 0.2 mg/dL (0.1-1.0); TOTAL PROTEIN, SERUM 6.8 g/dL (6.4-8.2)
[2019-10-07 12:50] LABS: AMPHET/METH SCREEN,URINE POSITIVE (NEGATIVE); BARBITURATE SCREEN, URINE NEGATIVE (NEGATIVE); BENZODIAZEPINES SCREEN,URINE NEGATIVE (NEGATIVE); CANNABINOID SCREEN,URINE POSITIVE (NEGATIVE); COCAINE SCREEN,URINE NEGATIVE (NEGATIVE); METHADONE SCREEN, URINE NEGATIVE (NEGATIVE); OPIATE SCREEN,URINE NEGATIVE (NEGATIVE); PHENCYCLIDINE SCREEN,URINE NEGATIVE (NEGATIVE)
[2019-10-07] MEDS ORDERED: ZOLPIDEM TARTRATE 10 MG TABLET PO PRN (14:00)
[2019-10-07] MEDS ORDERED: HALOPERIDOL 5 MG TABLET PO PRN (14:00)
[2019-10-07] MEDS ORDERED: IBUPROFEN 400 MG TABLET PO PRN (16:00)
[2019-10-07] MEDS ORDERED: DOCUSATE SODIUM 100 MG CAPSULE PO PRN (16:00)
[2019-10-07] MEDS ORDERED: MAG HYDROX/AL HYDROX/SIMETH ES 30 ML SUSPENSION UDCUP PO PRN (16:00)
[2019-10-07] MEDS ORDERED: LOPERAMIDE HCL 2 MG CAPSULE PO PRN (16:00)
[2019-10-07] MEDS ORDERED: CloNIDine HCL 0.1 MG TABLET PO PRN (16:00)
[2019-10-07] MEDS ORDERED: MAGNESIUM HYDROXIDE SUSPENSION 30 ML UDCUP PO PRN (16:00)
[2019-10-07] MEDS ORDERED: NICOTINE 14 MG/24 HOUR PATCH TD PRN (16:00)
[2019-10-07] MEDS ORDERED: GuaiFENesin/D-METHORPHAN [SUGAR-FREE] 200-20MG/10 ML SYRUP UDCUP PO PRN (16:00)
[2019-10-07] MEDS ORDERED: ALBUTEROL SULFATE HFA 90 MCG/PUFF 8 GM INHALER IH PRN (16:00)
[2019-10-07] MEDS ORDERED: ONDANSETRON HCL 4 MG TABLET PO PRN (16:00)
[2019-10-07] MEDS ORDERED: ACETAMINOPHEN 325 MG TABLET PO PRN (16:00)
[2019-10-07] MEDS ORDERED: PETROLATUM,WHITE 28 GM JELLY TP PRN (16:00)
[2019-10-07 16:01] VITALS: BP 129/83
[2019-10-07] MEDS: LORazepam 2 MG TABLET PO PRN (17:27)
[2019-10-07] MEDS ORDERED: INFLUENZA VIRUS VACCINE QVS 2019-20 (3YR+)/PF 60 MCG/0.5 ML SYRINGE IM ONE (19:15)
[2019-10-08 06:06] VITALS: BP 129/80
[2019-10-08 08:15] VITALS: BP 130/88
[2019-10-08 08:35] LABS: CHOL/HDL RATIO 2.6 (4.2-7.3); FREE T4 (FREE THYROXINE) 0.97 ng/dL (0.76-1.46); THYROID STIMULATING HORMONE 0.23 uIU/mL (0.36-3.74)
[2019-10-08] MEDS: LORazepam 2 MG TABLET PO PRN ×2 (08:37→14:04)
[2019-10-08] MEDS: GABAPENTIN 300 MG CAPSULE PO SCH ×2 (13:11→17:21)
[2019-10-08 16:40] VITALS: BP 139/79
[2019-10-08] MEDS: OLANZapine 10 MG TABLET PO SCH (17:21)
[2019-10-09 00:06] VITALS: BP 113/69
[2019-10-09 08:52] VITALS: BP 126/85
[2019-10-09] MEDS: ESCITALOPRAM OXALATE 20 MG TABLET PO SCH (09:34)
[2019-10-09] MEDS: OLANZapine 10 MG TABLET PO SCH ×2 (09:34→16:11)
[2019-10-09] MEDS: GABAPENTIN 300 MG CAPSULE PO SCH ×3 (09:34→16:11)
[2019-10-09] MEDS: LORazepam 2 MG TABLET PO PRN (09:34)
[2019-10-09 16:14] VITALS: BP 121/72
[2019-10-10 00:15] VITALS: BP 127/69
[2019-10-10 08:25] VITALS: BP 122/77
[2019-10-10] MEDS: GABAPENTIN 300 MG CAPSULE PO SCH (08:28)
[2019-10-10] MEDS: ESCITALOPRAM OXALATE 20 MG TABLET PO SCH (08:28)
[2019-10-10] MEDS: OLANZapine 10 MG TABLET PO SCH (08:28)
[2019-10-10] MEDS ORDERED: BuPROPion HCL XL 150 MG ER TABLET PO SCH (09:00)
[2019-10-10] MEDS ORDERED: BUPR-93 PO (10:27)
== END 2019-10-10 11:55 | disposition home or self-care (01) | DRG 753 ==
LOC: EMS 11:24 → B2S 14:31
PROVIDERS: ADMIT Psychiatry & Neurology Psychiatry; ATTEND Psychiatry & Neurology Psychiatry
DX: F31.4 Bipolar disorder, current episode depressed, severe, without psychotic features (principal); R45.851 Suicidal ideations; F20.9 Schizophrenia, unspecified; D64.9 Anemia, unspecified; I10 Essential (primary) hypertension; R73.9 Hyperglycemia, unspecified; F19.10 Other psychoactive substance abuse, uncomplicated; Z59.0 Homelessness
CPT/HCPCS: 84439; 84443; 87081; 90686; G0480

== ENCOUNTER 2019-10-28 15:03 | Inpatient (IN) | payer MEDICAID ==
[~2019-10-28] VITALS: Ht 175.3 cm; Wt 88.9 kg
[~2019-10-28 15:03] MED LIST changes: -AMLO10TA7 PO; +BUPR-93 PO; -LISI-661 PO
[2019-10-28] MEDS ORDERED: ZOLPIDEM TARTRATE 10 MG TABLET PO PRN (17:00)
[2019-10-28] MEDS ORDERED: HALOPERIDOL 5 MG TABLET PO PRN (17:00)
[2019-10-28 18:30] VITALS: BP 145/81
[2019-10-28] MEDS: LISINOPRIL 20 MG TABLET PO SCH (19:01)
[2019-10-28] MEDS ORDERED: PNEUMOCOCCAL VACCINE POLYVALENT 0.5 ML VIAL [PPSV23] IM ONE (19:15)
[2019-10-28] MEDS ORDERED: INFLUENZA VIRUS VACCINE QVS 2019-20 (3YR+)/PF 60 MCG/0.5 ML SYRINGE IM ONE (19:15)
[2019-10-28 20:52] VITALS: BP 138/85
[2019-10-28] MEDS: BACITRACIN 28.4 GM OINTMENT TP SCH (23:01)
[2019-10-29 05:10] VITALS: BP 140/93
[2019-10-29] MEDS: LORazepam 2 MG TABLET PO PRN ×2 (06:36→13:25)
[2019-10-29 08:18] LABS: BASOPHILS % (AUTO) 0.7 % (0.0-2.0); EOSINOPHILS % (AUTO) 2.9 % (1.0-6.0); HEMATOCRIT 34.3 % (41-53); HEMOGLOBIN 11.5 g/dL (13.5-17.5); LYMPHOCYTES % (AUTO) 20.6 % (22.0-44.0); MEAN CORPUSCULAR HEMOGLOBIN 28.6 pg (26.0-34.0); MEAN CORPUSCULAR HGB CONC 33.4 G/dL (31.0-37.0); MEAN CORPUSCULAR VOLUME 85 fL (80-100); MONOCYTES # (AUTO) 0.3 K/uL (0.1-1.0); NEUTROPHILS # (AUTO) 3.5 K/uL (1.8-7.7); NEUTROPHILS % (AUTO) 69.8 % (40.0-70.0); PLATELET COUNT (AUTO) 297 K/uL (150-450); RED BLOOD CELL COUNT(AUTO) 4.02 MIL/uL (4.50-5.90); RED CELL DISTRIBUTION WIDTH 13.8 % (11.5-14.5)
[2019-10-29 08:33] LABS: HEMOGLOBIN A1C 5.7 % (3.8-5.6)
[2019-10-29 08:55] LABS: ALANINE AMINOTRANSFERASE 28 U/L (12-78); ALBUMIN 3.2 g/dL (3.4-5.0); ALKALINE PHOSPHATASE 67 U/L (46-116); ANION GAP 6 mmol/L (8-16); ASPARTATE AMINOTRANSFERASE 16 U/L (15-37); BILIRUBIN,TOTAL 0.3 mg/dL (0.1-1.0); CALCIUM, TOTAL 8.8 mg/dL (8.8-10.5); CARBON DIOXIDE 27 mmol/L (22-29); CHLORIDE 105 mmol/L (98-107); CHOL/HDL RATIO 3.5 (4.2-7.3); CHOLESTEROL 120 mg/dL (131-200); CREATININE 0.65 mg/dL (0.60-1.30); FREE T4 (FREE THYROXINE) 1.42 ng/dL (0.76-1.46); GLOMERULAR FILTR. RATE CALC > 60 mL/min (>60); GLUCOSE,RANDOM 93 mg/dL (70-110); HDL CHOLESTEROL 34 mg/dL (40-60); LDL CHOL (CALC.) 67 mg/dL (0-130); SODIUM SERUM 138 mmol/L (136-145); THYROID STIMULATING HORMONE 0.06 uIU/mL (0.36-3.74); TOTAL PROTEIN, SERUM 6.3 g/dL (6.4-8.2); TRIGLYCERIDES 96 mg/dL (15-150); UREA NITROGEN, BLOOD 7 mg/dL (7-18)
[2019-10-29 09:06] VITALS: BP 141/93
[2019-10-29] MEDS: LISINOPRIL 20 MG TABLET PO SCH (09:56)
[2019-10-29] MEDS: BACITRACIN 28.4 GM OINTMENT TP SCH ×2 (09:56→17:29)
[2019-10-29] MEDS: BuPROPion HCL XL 150 MG ER TABLET PO SCH (12:52)
[2019-10-29] MEDS: ESCITALOPRAM OXALATE 20 MG TABLET PO SCH (13:12)
[2019-10-29] MEDS ORDERED: ACETAMINOPHEN 325 MG TABLET PO PRN (14:15)
[2019-10-29] MEDS ORDERED: NICOTINE 14 MG/24 HOUR PATCH TD PRN (14:15)
[2019-10-29] MEDS ORDERED: PETROLATUM,WHITE 28 GM JELLY TP PRN (14:15)
[2019-10-29] MEDS ORDERED: IBUPROFEN 400 MG TABLET PO PRN (14:15)
[2019-10-29] MEDS ORDERED: MAGNESIUM HYDROXIDE SUSPENSION 30 ML UDCUP PO PRN (14:15)
[2019-10-29] MEDS ORDERED: DOCUSATE SODIUM 100 MG CAPSULE PO PRN (14:15)
[2019-10-29] MEDS ORDERED: GuaiFENesin/D-METHORPHAN [SUGAR-FREE] 200-20MG/10 ML SYRUP UDCUP PO PRN (14:15)
[2019-10-29] MEDS ORDERED: MAG HYDROX/AL HYDROX/SIMETH ES 30 ML SUSPENSION UDCUP PO PRN (14:15)
[2019-10-29] MEDS ORDERED: ALBUTEROL SULFATE HFA 90 MCG/PUFF 8 GM INHALER IH PRN (14:15)
[2019-10-29] MEDS ORDERED: LOPERAMIDE HCL 2 MG CAPSULE PO PRN (14:15)
[2019-10-29] MEDS ORDERED: ONDANSETRON HCL 4 MG TABLET PO PRN (14:15)
[2019-10-29] MEDS ORDERED: CloNIDine HCL 0.1 MG TABLET PO PRN (14:15)
[2019-10-29] MEDS: GABAPENTIN 300 MG CAPSULE PO SCH ×2 (14:45→17:28)
[2019-10-29 16:14] VITALS: BP 139/75
[2019-10-29] MEDS: OLANZapine 10 MG TABLET PO SCH (17:29)
[2019-10-30 01:35] VITALS: BP 124/86
[2019-10-30 08:32] VITALS: BP 137/75
[2019-10-30] MEDS: BuPROPion HCL XL 150 MG ER TABLET PO SCH (09:01)
[2019-10-30] MEDS: ESCITALOPRAM OXALATE 20 MG TABLET PO SCH (09:01)
[2019-10-30] MEDS: GABAPENTIN 300 MG CAPSULE PO SCH ×3 (09:01→16:23)
[2019-10-30] MEDS: LISINOPRIL 20 MG TABLET PO SCH (09:01)
[2019-10-30] MEDS: OLANZapine 10 MG TABLET PO SCH ×2 (09:01→16:23)
[2019-10-30] MEDS: BACITRACIN 28.4 GM OINTMENT TP SCH ×2 (09:02→16:23)
[2019-10-30] MEDS: LORazepam 2 MG TABLET PO PRN ×2 (09:16→14:55)
[2019-10-30 16:26] VITALS: BP 125/71
[2019-10-31] MEDS: LORazepam 2 MG TABLET PO PRN ×3 (00:04→17:12)
[2019-10-31 00:37] VITALS: BP 146/96
[2019-10-31 08:25] VITALS: BP 140/81
[2019-10-31] MEDS: LISINOPRIL 20 MG TABLET PO SCH (08:51)
[2019-10-31] MEDS: ESCITALOPRAM OXALATE 20 MG TABLET PO SCH (08:51)
[2019-10-31] MEDS: GABAPENTIN 300 MG CAPSULE PO SCH ×3 (08:51→16:15)
[2019-10-31] MEDS: OLANZapine 10 MG TABLET PO SCH ×2 (08:51→16:15)
[2019-10-31] MEDS: BuPROPion HCL XL 150 MG ER TABLET PO SCH (08:51)
[2019-10-31] MEDS: BACITRACIN 28.4 GM OINTMENT TP SCH ×2 (08:51→16:16)
[2019-10-31 18:28] VITALS: BP 138/73
[2019-11-01 01:46] VITALS: BP 145/80
[2019-11-01] MEDS: LORazepam 2 MG TABLET PO PRN ×3 (03:28→16:18)
[2019-11-01 08:24] VITALS: BP 140/84
[2019-11-01] MEDS: ESCITALOPRAM OXALATE 20 MG TABLET PO SCH (09:19)
[2019-11-01] MEDS: BuPROPion HCL XL 150 MG ER TABLET PO SCH (09:19)
[2019-11-01] MEDS: OLANZapine 10 MG TABLET PO SCH ×2 (09:19→16:18)
[2019-11-01] MEDS: GABAPENTIN 300 MG CAPSULE PO SCH ×3 (09:19→16:18)
[2019-11-01] MEDS: LISINOPRIL 20 MG TABLET PO SCH (09:20)
[2019-11-01] MEDS: BACITRACIN 28.4 GM OINTMENT TP SCH ×2 (09:20→16:18)
[2019-11-01 16:09] VITALS: BP 136/83
[2019-11-02 01:08] VITALS: BP 128/95
[2019-11-02] MEDS: LORazepam 2 MG TABLET PO PRN ×3 (07:09→17:54)
[2019-11-02 08:49] VITALS: BP 134/100
[2019-11-02] MEDS: GABAPENTIN 300 MG CAPSULE PO SCH ×3 (08:50→17:31)
[2019-11-02] MEDS: OLANZapine 10 MG TABLET PO SCH ×2 (08:50→17:31)
[2019-11-02] MEDS: LISINOPRIL 20 MG TABLET PO SCH (08:50)
[2019-11-02] MEDS: BuPROPion HCL XL 150 MG ER TABLET PO SCH (08:50)
[2019-11-02] MEDS: ESCITALOPRAM OXALATE 20 MG TABLET PO SCH (08:50)
[2019-11-02] MEDS: BACITRACIN 28.4 GM OINTMENT TP SCH ×2 (08:50→17:31)
[2019-11-02 16:00] VITALS: BP 141/82
[2019-11-02] MEDS ORDERED: MUPIROCIN CALCIUM 2% 15 GM CREAM TP SCH (17:00)
[2019-11-02] MEDS: MUPIROCIN CALCIUM 2% 22 GM OINTMENT TP SCH (17:31)
[2019-11-03 06:51] VITALS: BP 146/83
[2019-11-03] MEDS: LORazepam 2 MG TABLET PO PRN ×3 (07:07→21:43)
[2019-11-03] MEDS: ESCITALOPRAM OXALATE 20 MG TABLET PO SCH (09:16)
[2019-11-03] MEDS: BuPROPion HCL XL 150 MG ER TABLET PO SCH (09:16)
[2019-11-03] MEDS: GABAPENTIN 300 MG CAPSULE PO SCH ×3 (09:16→16:41)
[2019-11-03] MEDS: BACITRACIN 28.4 GM OINTMENT TP SCH ×2 (09:16→16:41)
[2019-11-03] MEDS: LISINOPRIL 20 MG TABLET PO SCH (09:16)
[2019-11-03] MEDS: OLANZapine 10 MG TABLET PO SCH ×2 (09:16→16:40)
[2019-11-03] MEDS: MUPIROCIN CALCIUM 2% 22 GM OINTMENT TP SCH ×2 (09:17→16:41)
[2019-11-03 12:13] VITALS: BP 136/74
[2019-11-03 16:49] VITALS: BP 137/93
[2019-11-04 06:52] VITALS: BP 139/84
[2019-11-04] MEDS: LORazepam 2 MG TABLET PO PRN ×2 (07:13→16:10)
[2019-11-04 09:11] VITALS: BP 127/79
[2019-11-04] MEDS: ESCITALOPRAM OXALATE 20 MG TABLET PO SCH (09:21)
[2019-11-04] MEDS: GABAPENTIN 300 MG CAPSULE PO SCH ×3 (09:21→16:10)
[2019-11-04] MEDS: BACITRACIN 28.4 GM OINTMENT TP SCH ×2 (09:22→16:13)
[2019-11-04] MEDS: BuPROPion HCL XL 150 MG ER TABLET PO SCH (09:22)
[2019-11-04] MEDS: OLANZapine 10 MG TABLET PO SCH ×2 (09:22→16:10)
[2019-11-04] MEDS: MUPIROCIN CALCIUM 2% 22 GM OINTMENT TP SCH ×2 (09:22→16:13)
[2019-11-04] MEDS: LISINOPRIL 20 MG TABLET PO SCH (09:22)
[2019-11-04] MEDS: MULTIVITAMINS WITH IRON TABLET PO SCH (13:32)
[2019-11-04 16:15] VITALS: BP 123/85
[2019-11-05 00:40] VITALS: BP 131/70
[2019-11-05] MEDS: LORazepam 2 MG TABLET PO PRN ×2 (07:20→16:46)
[2019-11-05 08:34] VITALS: BP 148/97
[2019-11-05] MEDS: BACITRACIN 28.4 GM OINTMENT TP SCH ×2 (08:39→16:47)
[2019-11-05] MEDS: OLANZapine 10 MG TABLET PO SCH ×2 (08:39→16:46)
[2019-11-05] MEDS: MULTIVITAMINS WITH IRON TABLET PO SCH (08:39)
[2019-11-05] MEDS: GABAPENTIN 300 MG CAPSULE PO SCH ×3 (08:39→16:46)
[2019-11-05] MEDS: BuPROPion HCL XL 150 MG ER TABLET PO SCH (08:39)
[2019-11-05] MEDS: LISINOPRIL 20 MG TABLET PO SCH (08:39)
[2019-11-05] MEDS: ESCITALOPRAM OXALATE 20 MG TABLET PO SCH (08:39)
[2019-11-05] MEDS: MUPIROCIN CALCIUM 2% 22 GM OINTMENT TP SCH ×2 (08:41→16:48)
[2019-11-05 16:13] VITALS: BP 126/82
[2019-11-06 00:45] VITALS: BP 118/64
[2019-11-06] MEDS: LORazepam 2 MG TABLET PO PRN ×3 (06:40→17:57)
[2019-11-06] MEDS: GABAPENTIN 300 MG CAPSULE PO SCH ×3 (08:52→17:31)
[2019-11-06] MEDS: MULTIVITAMINS WITH IRON TABLET PO SCH (08:52)
[2019-11-06] MEDS: LISINOPRIL 20 MG TABLET PO SCH (08:52)
[2019-11-06] MEDS: ESCITALOPRAM OXALATE 20 MG TABLET PO SCH (08:52)
[2019-11-06] MEDS: BuPROPion HCL XL 150 MG ER TABLET PO SCH (08:53)
[2019-11-06] MEDS: OLANZapine 10 MG TABLET PO SCH ×2 (08:53→17:31)
[2019-11-06] MEDS: MUPIROCIN CALCIUM 2% 22 GM OINTMENT TP SCH ×2 (08:53→17:31)
[2019-11-06] MEDS: BACITRACIN 28.4 GM OINTMENT TP SCH ×2 (08:54→17:31)
[2019-11-06 09:31] VITALS: BP 140/94
[2019-11-06 16:41] VITALS: BP 132/84
[2019-11-07] MEDS: LORazepam 2 MG TABLET PO PRN (05:34)
[2019-11-07 05:37] VITALS: BP 147/91
[2019-11-07] MEDS: ESCITALOPRAM OXALATE 20 MG TABLET PO SCH (08:42)
[2019-11-07] MEDS: BuPROPion HCL XL 150 MG ER TABLET PO SCH (08:42)
[2019-11-07] MEDS: OLANZapine 10 MG TABLET PO SCH (08:42)
[2019-11-07] MEDS: GABAPENTIN 300 MG CAPSULE PO SCH ×2 (08:42→12:25)
[2019-11-07] MEDS: MULTIVITAMINS WITH IRON TABLET PO SCH (08:42)
[2019-11-07] MEDS: LISINOPRIL 20 MG TABLET PO SCH (08:42)
[2019-11-07] MEDS: MUPIROCIN CALCIUM 2% 22 GM OINTMENT TP SCH (08:43)
[2019-11-07] MEDS: BACITRACIN 28.4 GM OINTMENT TP SCH (08:43)
[2019-11-07 10:28] VITALS: BP 139/97
[2019-11-07] MEDS ORDERED: MVITFE PO (11:48)
[2019-11-07] MEDS ORDERED: LISI-662 PO (11:48)
== END 2019-11-07 12:33 | disposition home or self-care (01) | DRG 753 ==
LOC: 2WR 17:02 → B2S 18:39
PROVIDERS: ADMIT Psychiatry & Neurology Psychiatry; ATTEND Psychiatry & Neurology Psychiatry
DX: F31.9 Bipolar disorder, unspecified (principal); F15.20 Other stimulant dependence, uncomplicated; R45.851 Suicidal ideations; D64.9 Anemia, unspecified; F10.10 Alcohol abuse, uncomplicated; F20.9 Schizophrenia, unspecified; I10 Essential (primary) hypertension; K21.9 Gastro-esophageal reflux disease without esophagitis; E05.90 Thyrotoxicosis, unspecified without thyrotoxic crisis or storm; F41.9 Anxiety disorder, unspecified; R73.9 Hyperglycemia, unspecified; Z59.0 Homelessness; Z28.21 Immunization not carried out because of patient refusal; Z79.899 Other long term (current) drug therapy; Z71.51 Drug abuse counseling and surveillance of drug abuser; Z71.41 Alcohol abuse counseling and surveillance of alcoholic
CPT/HCPCS: 83036; 84439; 84443; 87081